=== PATIENT | male | born 1990 | race Hispanic/Latino ===

== ENCOUNTER 2019-05-05 19:49 | Emergency (ER) | payer SELFPAY ==
[2019-05-05] MEDS ORDERED: NA CHLORIDE 0.9% 1,000 ML ONE (21:22)
[2019-05-05] MEDS ORDERED: ONDANSETRON 4 MG/2 ML VIAL ONE (21:22)
[2019-05-05 21:33] LABS: Absolute Lymphocytes (CBC) 2.6 K/uL (0.7-4.9); Basophils % 0.5 % (0-1.3); Hematocrit 47.8 % (39.6-49.0); Lymphocytes % 31.4 % (15.3-44.8); MPV 9.3 fL (7.6-11.3); RBC Red Blood Cell Count 5.35 M/uL (4.33-5.43)
[2019-05-05 21:40] LABS: Albumin 4.5 g/dL (3.4-5.0); Bilirubin Direct 0.3 mg/dL (0-0.2); Bilirubin Total 1.2 mg/dL (0.2-1.0); Potassium 3.9 mmol/L (3.5-5.1); Protein, Total 8.2 g/dL (6.4-8.2)
--- NOTE | 2019-05-05 23:54 | ER ---
Nurse's Notes [facility] Name: Nba Rubio Age: 29 yrs Sex: Male : 1990 Arrival Date: 05/05/2019 Time: 19:52 Bed 18 Private MD: Diagnosis: Vomiting Presentation: 05/05 20:00 Presenting complaint: Patient states: "The past few days I've been throwing up and my aj1 stomach has been like it don't want to take no food." Reports intermittent abd pain. Denies fever. Transition of care: patient was not received from another setting of care. Onset of symptoms was 2019. Risk Assessment: Do you want to hurt yourself or someone else? Patient reports no desire to harm self or others. Initial Sepsis Screen: Does the patient meet any 2 criteria? No. Patient's initial sepsis screen is negative. Does the patient have a suspected source of infection? Yes: Acute abdominal pain. Care prior to arrival: None. 20:00 Method Of Arrival: Ambulatory aj1 20:00 Acuity: SHIVANI 3 aj1 Triage Assessment: 20:01 General: Appears in no apparent distress. comfortable, Behavior is calm, cooperative, aj1 appropriate for age. Pain: Pain currently is 5 out of 10 on a pain scale. Neuro: Level of Consciousness is awake, alert, obeys commands. Cardiovascular: Patient's skin is warm and dry. Respiratory: Airway is patent Respiratory effort is even, unlabored, Respiratory pattern is regular, symmetrical. GI: Reports nausea, vomiting. Historical: - Allergies: 20:01 No Known Allergies; aj1 - Home Meds: 20:01 None [Active]; aj1 - PMHx: 20:01 None; aj1 - PSHx: 20:01 None; aj1 - Immunization history:: Flu vaccine is not up to date. - Social history:: Smoking status: Patient/guardian denies using tobacco. - Ebola Screening: : Patient denies travel to an Ebola-affected area in the 21 days before illness onset. Screenin:00 Abuse screen: Denies threats or abuse. Denies injuries from another. Nutritional wh screening: No deficits noted. Tuberculosis screening: No symptoms or risk factors identified. Fall Risk None identified. Assessment: 21:30 General: Appears in no apparent distress. Behavior is calm, cooperative, appropriate wh for age. Pain: Denies pain. Neuro: Level of Consciousness is awake, alert, obeys commands. Cardiovascular: Heart tones S1 S2. Respiratory: Airway is patent Respiratory effort is even, unlabored, Respiratory pattern is regular, symmetrical, Breath sounds are clear bilaterally. GI: Abdomen is flat, non-distended, Bowel sounds present X 4 quads. Abd is soft and non tender X 4 quads. Reports nausea. : No signs and/or symptoms were reported regarding the genitourinary system. EENT: No signs and/or symptoms were reported regarding the EENT system. Derm: Skin is intact, is healthy with good turgor, Skin is pink, warm \\T\\ dry. normal. Musculoskeletal: Circulation, motion, and sensation intact. 22:40 Reassessment: Patient appears in no apparent distress at this time. No changes from previously documented assessment. Patient and/or family updated on plan of care and expected duration. Pain level reassessed. Patient is alert, oriented x 3, equal unlabored respirations, skin warm/dry/pink. 05/06 00:01 Reassessment: Patient appears in no apparent distress at this time. No changes from previously documented assessment. Patient and/or family updated on plan of care and expected duration. Pain level reassessed. Patient is alert, oriented x 3, equal unlabored respirations, skin warm/dry/pink. Patient states feeling better. Patient states symptoms have improved. Vital Signs: 05/05 20:01 BP 123 / 83; Pulse 70; Resp 18; Temp 97.8; Pulse Ox 100% on R/A; Weight 108.86 kg (R); aj1 Height 5 ft. 10 in. (177.80 cm) (R); Pain 5/10; 21:00 BP 121 / 72; Pulse 65; Resp 18; Pulse Ox 99% ; wh 22:00 BP 117 / 70; Pulse 64; Resp 18; Pulse Ox 100% on R/A; wh 23:30 BP 120 / 72; Pulse 66; Resp 18; Pulse Ox 99% on R/A; wh 20:01 Body Mass Index 34.44 (108.86 kg, 177.80 cm) aj1 ED Course: 19:52 Patient arrived in ED. cl3 20:01 Triage completed. aj1 20:01 Arm band placed on Patient placed in waiting room, Patient notified of wait time. aj1 20:25 Gautam Sarabia PA is PHCP. arslan 20:25 Eric Stokes MD is Attending Physician. arslan 20:58 Elaina Turcios is Primary Nurse. 21:00 Patient has correct armband on for positive identification. Bed in low position. Call light in reach. Side rails up X 1. Pulse ox on. NIBP on. 21:00 Inserted saline lock: 20 gauge in right antecubital area, using aseptic technique. Blood collected. 05/06 00:02 No provider procedures requiring assistance completed. IV discontinued, intact, bleeding controlled, No redness/swelling at site. Administered Medications: 05/05 21:27 Drug: NS 0.9% 1000 ml Route: IV; Rate: 1 bolus; Site: right antecubital; 23:17 Follow up: Response: No adverse reaction; IV Status: Completed infusion 21:29 Drug: Zofran 4 mg Route: IVP; Site: right antecubital; 23:17 Follow up: Response: No adverse reaction; Nausea is decreased Outcome: 23:53 Discharge ordered by . [facility] 05/06 00:02 Discharged to home ambulatory, with family. Condition: stable Discharge instructions given to patient, family, Instructed on discharge instructions, follow up and referral plans. no driving heavy equipment, POC Demonstrated understanding of instructions, follow-up care, medications, POC Prescriptions given X 1. 00:03 Patient left the ED. Signatures: Emmy Arvizu, RN RN aj1 Gautam Sarabia PA PA jmm Habalo, Winsy Amanda Alvarez cl3
--- NOTE | 2019-05-05 23:54 | EDPHYS ---
Physician Documentation [facility] Name: Nba Rubio Age: 29 yrs Sex: Male : 1990 Arrival Date: 05/05/2019 Time: 19:52 Bed 18 Private MD: ED Physician Eric Stokes HPI: 05/05 21:07 This 29 yrs old Male presents to ER via Ambulatory with complaints of jmm Vomiting, Abdominal Pain. 21:07 The patient presents to the emergency department with nausea, vomiting. Onset: The jmm symptoms/episode began/occurred acutely, 1 day(s) ago. Possible causes: unknown. The symptoms are aggravated by food , The symptoms are alleviated by nothing. Associated signs and symptoms: Pertinent negatives: abdominal pain, diarrhea, fever. Patient denies recent abx use, denies recent travel. . Historical: - Allergies: 20:01 No Known Allergies; aj1 - Home Meds: 20:01 None [Active]; aj1 - PMHx: 20:01 None; aj1 - PSHx: 20:01 None; aj1 - Immunization history:: Flu vaccine is not up to date. - Social history:: Smoking status: Patient/guardian denies using tobacco. - Ebola Screening: : Patient denies travel to an Ebola-affected area in the 21 days before illness onset. ROS: 21:07 Constitutional: Negative for fever, chills, and weight loss, Cardiovascular: Negative jmm for chest pain, palpitations, and edema, Respiratory: Negative for shortness of breath, cough, wheezing, and pleuritic chest pain. 21:07 Abdomen/GI: Positive for nausea and vomiting. 21:07 All other systems are negative. Exam: 21:07 Constitutional: This is a well developed, well nourished patient who is awake, alert, jmm and in no acute distress. Head/Face: atraumatic. Eyes: EOMI, no conjunctival erythema appreciated ENT: Moist Mucus Membranes Neck: Trachea midline, Supple Chest/axilla: Normal chest wall appearance and motion. Cardiovascular: Regular rate and rhythm. No edema appreciated Respiratory: Normal respirations, no respiratory distress appreciated 21:07 Back: Normal ROM Skin: General appearance color normal MS/ Extremity: Moves all extremities, no obvious deformities appreciated, no edema noted to the lower extremities Neuro: Awake and alert, normal gait Psych: Behavior is normal, Mood is normal, Patient is cooperative and pleasant 21:07 Abdomen/GI: Inspection: abdomen appears normal, Bowel sounds: normal, Palpation: abdomen is soft and non-tender. Vital Signs: 20:01 BP 123 / 83; Pulse 70; Resp 18; Temp 97.8; Pulse Ox 100% on R/A; Weight 108.86 kg (R); aj1 Height 5 ft. 10 in. (177.80 cm) (R); Pain 5/10; 21:00 BP 121 / 72; Pulse 65; Resp 18; Pulse Ox 99% ; wh 22:00 BP 117 / 70; Pulse 64; Resp 18; Pulse Ox 100% on R/A; wh 23:30 BP 120 / 72; Pulse 66; Resp 18; Pulse Ox 99% on R/A; wh 20:01 Body Mass Index 34.44 (108.86 kg, 177.80 cm) aj1 MDM: 20:29 Patient medically screened. casey 23:51 Data reviewed: vital signs, nurses notes. Counseling: I had a detailed discussion with melissa the patient and/or guardian regarding: the historical points, exam findings, and any diagnostic results supporting the discharge/admit diagnosis, lab results, the need for outpatient follow up, to return to the emergency department if symptoms worsen or persist or if there are any questions or concerns that arise at home. ED course: Patient is alert and non toxic in appearance in the ED. Abdomen is non tender to palpation. Patient was given early appendicitis return precautions. Patient understood and agrees with the plan of care. . 05/05 21:06 Order name: Basic Metabolic Panel; Complete Time: 21:58 [facility] 05/05 21:06 Order name: CBC with Diff; Complete Time: 21:58 [facility] 05/05 21:06 Order name: Creatinine for Radiology; Complete Time: 21:58 [facility] 05/05 21:06 Order name: Hepatic Function; Complete Time: 21:58 [facility] 05/05 21:06 Order name: Lipase; Complete Time: 21:58 [facility] 05/05 22:49 Order name: Urine Dipstick--Ancillary (enter results) ar5 05/05 21:06 Order name: IV Saline Lock; Complete Time: 21:19 [facility] 05/05 21:06 Order name: Labs collected and sent; Complete Time: 21:19 [facility] 05/05 21:06 Order name: Urine Dipstick-Ancillary (obtain specimen); Complete Time: 22: [facility] 05/05 21:59 Order name: PO challenge; Complete Time: : [facility] Administered Medications: 21:27 Drug: NS 0.9% 1000 ml Route: IV; Rate: 1 bolus; Site: right antecubital; 23:17 Follow up: Response: No adverse reaction; IV Status: Completed infusion 21:29 Drug: Zofran 4 mg Route: IVP; Site: right antecubital; 23:17 Follow up: Response: No adverse reaction; Nausea is decreased Disposition: 05/05/19 23:53 Discharged to Home. Impression: Vomiting. - Condition is Stable. - Discharge Instructions: Nausea and Vomiting, Adult. - Prescriptions for Zofran ODT 4 mg Oral tablet,disintegrating - place 1 tablet by TRANSLINGUAL route every 4-6 hours; 20 tablet. - Medication Reconciliation Form, Thank You Letter, Antibiotic Education, Prescription Opioid Use form. - Follow up: Private Physician; When: 2 - 3 days; Reason: Recheck today's complaints, Continuance of care, Re-evaluation by your physician. Addendum: 05/07/2019 10:03 Co-signature as Attending Physician, Eric Stokes MD I agree with the assessment and c nuñez plan of care. Signatures: Dispatcher [employer] EDEmmy Murphy, RN RN aj1 Eric Stokes MD MD cha Mickail, Joel, PA PA [facility] Elaina Turcios Corrections: (The following items were deleted from the chart) 05/06 00:03 05/05 23:53 05/05/2019 23:53 Discharged to Home. Impression: Vomiting. Condition is Stable. Forms are Medication Reconciliation Form, Thank You Letter, Antibiotic Education, Prescription Opioid Use. Follow up: Private Physician; When: 2 - 3 days; Reason: Recheck today's complaints, Continuance of care, Re-evaluation by your physician. [facility]
[2019-05-06 00:44] LABS: Urine Blood TRACE (NEG); Urine Glucose NEGATIVE (NEG); Urine Protein 1+ (NEG); Urine Specific Gravity >1.030 (1.005-1.030); Urine pH 5.5 (5.0-7.0)
[2019-05-06 01:18] VITALS: TEMP 97.8
[2019-05-06 01:22] VITALS: BP 120/72; O2SAT 99
== END 2019-05-06 00:03 | disposition home or self-care (01) ==
LOC: ER 19:49
DX: R11.10 Vomiting, unspecified (principal)
CPT/HCPCS: 36415; 80048; 80076; 81003; 83690; 85025; 96361; 96374; 99284; J2405; J7030

== ENCOUNTER 2019-05-15 04:31 | Emergency (ER) | payer SELFPAY ==
[2019-05-15 05:29] LABS: Absolute Lymphocytes (CBC) 3.7 K/uL (0.7-4.9); Basophils % 0.4 % (0-1.3); Hematocrit 44.3 % (39.6-49.0); Lymphocytes % 40.5 % (15.3-44.8); MPV 9.2 fL (7.6-11.3); RBC Red Blood Cell Count 5.03 M/uL (4.33-5.43)
[2019-05-15 06:01] LABS: Albumin 4.3 g/dL (3.4-5.0); Bilirubin Direct 0.2 mg/dL (0-0.2); Bilirubin Total 1.1 mg/dL (0.2-1.0); Potassium 3.5 mmol/L (3.5-5.1); Protein, Total 7.7 g/dL (6.4-8.2)
--- NOTE | 2019-05-15 06:47 | ER ---
Nurse's Notes [facility] Name: Nba Rubio Age: 29 yrs Sex: Male : 1990 Arrival Date: 05/15/2019 Time: 04:32 Bed 7 Private MD: Diagnosis: Unspecified abdominal pain Presentation: 05/15 04:41 Presenting complaint: Patient states: I'VE BEEN HAVING WEIRD PAINS ON MY BELLY. LIKE rv SHARP PAINS. TODAY I WOKE UP AT 3 WITH PAIN. I TRIED TO GO TO THE RESTROOM BUT ITS NOT THAT. ITS JUST WEIRD. Transition of care: patient was not received from another setting of care. Onset of symptoms was May 15, 2019 at 03:00. Risk Assessment: Do you want to hurt yourself or someone else? Patient reports no desire to harm self or others. Initial Sepsis Screen: Does the patient meet any 2 criteria? No. Patient's initial sepsis screen is negative. Does the patient have a suspected source of infection? No. Patient's initial sepsis screen is negative. Care prior to arrival: None. 04:41 Method Of Arrival: Ambulatory rv 04:41 Acuity: SHIVANI 3 rv Triage Assessment: 04:44 General: Appears in no apparent distress. Behavior is calm, cooperative. Pain: rv Complains of pain in abdomen. Neuro: Level of Consciousness is awake, alert, obeys commands, Oriented to person, place, time, situation. Cardiovascular: Patient's skin is warm and dry. Respiratory: Airway is patent. GI: Abdomen is flat. Derm: Skin is intact. Historical: - Allergies: 04:43 No Known Allergies; rv - Home Meds: 04:43 None [Active]; rv - PMHx: 04:43 None; rv - PSHx: 04:43 None; rv - Immunization history:: Adult Immunizations up to date. - Coronavirus screen:: The patient has NOT traveled to [place], [place], or [place] in the past 14 days. Proceed with normal triage process as indicated. The patient has NOT had contact with known/suspected case of Coronavirus? Proceed with normal triage procedures. - Social history:: Smoking status: Smoking status: Patient/guardian denies using tobacco, Stopped _ months ago [address], marijuana. - Family history:: not pertinent. - Ebola Screening: : No symptoms or risks identified at this time. - Hospitalizations: : No recent hospitalization is reported. Screenin:44 Abuse screen: Denies threats or abuse. Denies injuries from another. Nutritional rv screening: No deficits noted. Tuberculosis screening: No symptoms or risk factors identified. Fall Risk None identified. Assessment: 04:45 GI: Bowel sounds present X 4 quads. Abd is soft and non tender X 4 quads. rv 05:33 General: Appears in no apparent distress. comfortable. Pain: Complains of pain in rv abdomen. Neuro: Level of Consciousness is awake, alert, obeys commands, Oriented to person, place, time, situation. Cardiovascular: Patient's skin is warm and dry. Respiratory: Airway is patent. 06:30 Reassessment: Patient appears in no apparent distress at this time. Patient and/or rv family updated on plan of care and expected duration. Pain level reassessed. Patient is alert, oriented x 3, equal unlabored respirations, skin warm/dry/pink. CAME BACK RADIOLOGY. AWAITING RESULT. Vital Signs: 04:42 BP 146 / 108; Pulse 72; Resp 16; Temp 97.2; Pulse Ox 99% on R/A; rv 04:54 Weight 107.95 kg; Height 5 ft. 10 in. (177.80 cm); rv 05:33 BP 121 / 90; Pulse 62; Resp 17; Pulse Ox 99% on R/A; rv 06:00 BP 121 / 81; Pulse 67; Resp 18; Pulse Ox 100% on R/A; rv 06:29 BP 136 / 80; Pulse 62; Resp 16; Pulse Ox 100% ; rv 04:54 Body Mass Index 34.15 (107.95 kg, 177.80 cm) rv ED Course: 04:32 Patient arrived in ED. ds1 04:36 Andrew Greenfield MD is Attending Physician. rn 04:41 Dusty Temple RN is Primary Nurse. rv 04:42 Triage completed. rv 04:44 Arm band placed on. rv 04:44 Patient has correct armband on for positive identification. Pulse ox on. NIBP on. rv 04:54 Inserted saline lock: 20 gauge in right antecubital area, using aseptic technique. jb5 Blood collected. 05:26 Radiology exam delayed due to lab results not completed at this time. (BUN/Creatinine). kw1 05:51 Radiology exam delayed due to lab results not completed at this time. (BUN/Creatinine). kw1 06:28 CT Abd/Pelvis - IV Contrast Only In Process Unspecified. EDMS 06:50 No provider procedures requiring assistance completed. IV discontinued, intact, rv bleeding controlled, No redness/swelling at site. Pressure dressing applied. Administered Medications: No medications were administered Outcome: 06:46 Discharge ordered by MD. rn 06:50 Discharged to home ambulatory, with family. rv 06:50 Condition: good 06:50 Discharge instructions given to patient, family, Instructed on discharge instructions, follow up and referral plans. Demonstrated understanding of instructions, follow-up care. 06:55 Patient left the ED. rv Signatures: Dispatcher [employer] EDMS Janett Mcfarlnae ds1 Andrew Greenfield MD MD rn Broussard, Jennifer jb5 Wilhelm, Kimberly kw1 Dusty Temple RN RN rv
--- NOTE | 2019-05-15 06:47 | EDPHYS ---
Physician Documentation [facility] Name: Nba Rubio Age: 29 yrs Sex: Male : 1990 Arrival Date: 05/15/2019 Time: 04:32 Bed 7 Private MD: ED Physician Andrew Greenfield HPI: 05/15 04:51 This 29 yrs old Male presents to ER via Ambulatory with complaints of rn Abdominal Pain. 04:51 The patient presents with abdominal pain that is diffuse. Onset: The symptoms/episode rn began/occurred 1 week(s) ago. The symptoms do not radiate. Associated signs and symptoms: Pertinent positives: constipation, Pertinent negatives: blood in stools, chest pain, diarrhea, dysuria, fever, hematuria, testicular pain, vomiting. Modifying factors: The symptoms are alleviated by nothing, the symptoms are aggravated by nothing. Severity of pain: At its worst the pain was mild in the emergency department the pain is unchanged. The patient has experienced a previous episode. Reports recently seen for this abd pain last week, only bloodwork done, no fever, no longer having vomiting/diarrhea, no blood in stool, reports lays down and gets anxious with pain, then feels like can't breath. . Historical: - Allergies: 04:43 No Known Allergies; rv - Home Meds: 04:43 None [Active]; rv - PMHx: 04:43 None; rv - PSHx: 04:43 None; rv - Immunization history:: Adult Immunizations up to date. - Coronavirus screen:: The patient has NOT traveled to [place], [place], or [place] in the past 14 days. Proceed with normal triage process as indicated. The patient has NOT had contact with known/suspected case of Coronavirus? Proceed with normal triage procedures. - Social history:: Smoking status: Smoking status: Patient/guardian denies using tobacco, Stopped _ months ago [address], marijuana. - Family history:: not pertinent. - Ebola Screening: : No symptoms or risks identified at this time. - Hospitalizations: : No recent hospitalization is reported. ROS: 04:51 Constitutional: Negative for fever, chills, and weight loss, Eyes: Negative for injury, rn pain, redness, and discharge, Cardiovascular: Negative for chest pain, palpitations, and edema, Respiratory: Negative for shortness of breath, cough, wheezing, and pleuritic chest pain, Abdomen/GI: Negative for nausea, vomiting, diarrhea Back: Negative for injury and pain, : Negative for injury, bleeding, discharge, and swelling, MS/Extremity: Negative for injury and deformity, Skin: Negative for injury, rash, and discoloration, Neuro: Negative for headache, weakness, numbness, tingling, and seizure. Exam: 04:51 Constitutional: This is a well developed, well nourished patient who is awake, alert, rn and in no acute distress. Ambulatory to room without difficulty Head/Face: Normocephalic, atraumatic. Cardiovascular: Regular rate and rhythm. No pulse deficits. Respiratory: No increased work of breathing, no retractions or nasal flaring. Abdomen/GI: soft, non-tender Back: No spinal tenderness. No costovertebral tenderness. Full range of motion. Skin: Warm, dry with normal turgor. Normal color with no rashes, no lesions, and no evidence of cellulitis. MS/ Extremity: Pulses equal, no cyanosis. Neurovascular intact. Full, normal range of motion. Equal circumference. Neuro: Awake and alert, GCS 15, oriented to person, place, time, and situation. Cranial nerves II-XII grossly intact. Motor strength 5/5 in all extremities. Sensory grossly intact. Cerebellar exam normal. Normal gait. Vital Signs: 04:42 BP 146 / 108; Pulse 72; Resp 16; Temp 97.2; Pulse Ox 99% on R/A; rv 04:54 Weight 107.95 kg; Height 5 ft. 10 in. (177.80 cm); rv 05:33 BP 121 / 90; Pulse 62; Resp 17; Pulse Ox 99% on R/A; rv 06:00 BP 121 / 81; Pulse 67; Resp 18; Pulse Ox 100% on R/A; rv 06:29 BP 136 / 80; Pulse 62; Resp 16; Pulse Ox 100% ; rv 04:54 Body Mass Index 34.15 (107.95 kg, 177.80 cm) rv MDM: 04:36 Patient medically screened. rn 06:44 Differential diagnosis: gastritis, gastroesophageal reflux disease, Hepatitis, rn non-specific abd pain, pancreatitis, Peptic Ulcer Disease. Data reviewed: vital signs, nurses notes, lab test result(s), radiologic studies, CT scan, and as a result, I will discharge patient. 06:45 Counseling: I had a detailed discussion with the patient and/or guardian regarding: the rn historical points, exam findings, and any diagnostic results supporting the discharge/admit diagnosis, lab results, radiology results, the need for outpatient follow up, to return to the emergency department if symptoms worsen or persist or if there are any questions or concerns that arise at home. Response to treatment: the patient's symptoms have mildly improved after treatment, and as a result, I will discharge patient. Special discussion: Based on the patient's Hx, exam, and Dx evaluation, there is no indication for emergent surgery or inpatient Tx. It is understood by the patient/guardian that if the Sx's persist or worsen they need to return immediately for re-evaluation. I discussed with the patient/guardian in detail that at this point there is no indication for admission to the hospital. It is understood, however, that if the symptoms persist or worsen the patient needs to return immediately for re-evaluation. ED course: No acute findings on ct abdomen. Will dc home with pcp f/u. . 05/15 04:47 Order name: Basic Metabolic Panel; Complete Time: 06:05 05/15 04:47 Order name: CBC with Diff; Complete Time: 06:05 05/15 04:47 Order name: Creatinine for Radiology; Complete Time: 06:05 05/15 04:47 Order name: Hepatic Function; Complete Time: 06:05 rn 05/15 04:47 Order name: Lipase; Complete Time: 06:05 05/15 05:39 Order name: Urine Dipstick--Ancillary (enter results) em1 05/15 04:47 Order name: IV Saline Lock; Complete Time: 04:53 rn 05/15 04:47 Order name: Labs collected and sent; Complete Time: 04:54 rn 05/15 04:47 Order name: CT Abd/Pelvis - IV Contrast Only rn 05/15 04:47 Order name: Urine Dipstick-Ancillary (obtain specimen); Complete Time: 05:34 rn Administered Medications: No medications were administered Disposition: 05/15/19 06:46 Discharged to Home. Impression: Unspecified abdominal pain. - Condition is Stable. - Discharge Instructions: Abdominal Pain, Adult, Pain Without a Known Cause. - Medication Reconciliation Form, Thank You Letter, Antibiotic Education, Prescription Opioid Use, Work release form form. - Follow up: Private Physician; When: As needed; Reason: Recheck today's complaints, Re-evaluation by your physician. - Problem is an ongoing problem. - Symptoms have improved. Signatures: Dispatcher [employer] EDAndrew Lema MD MD rn Vicente, Ronaldo, RN RN rv Corrections: (The following items were deleted from the chart) 06:55 06:46 05/15/2019 06:46 Discharged to Home. Impression: Unspecified abdominal pain. rv Condition is Stable. Forms are Medication Reconciliation Form, Thank You Letter, Antibiotic Education, Prescription Opioid Use. Follow up: Private Physician; When: As needed; Reason: Recheck today's complaints, Re-evaluation by your physician. Problem is an ongoing problem. Symptoms have improved. rn
[2019-05-15 07:10] VITALS: TEMP 97.2
[2019-05-15 07:13] LABS: Urine Blood TRACE (NEG); Urine Glucose NEGATIVE (NEG); Urine Protein TRACE (NEG); Urine Specific Gravity >1.030 (1.005-1.030)
[2019-05-15 07:16] VITALS: O2SAT 100
[2019-05-15 07:17] VITALS: BP 136/80
--- NOTE | 2019-05-15 12:31 | RAD REPORT ---
EXAM DESCRIPTION: CT - Abdomen Pelvis W Contrast - 05/15/2019 6:46 am CLINICAL HISTORY: The patient is 29 years old and is Male; ABD PAIN TECHNIQUE: Axial computed tomography images of the abdomen and pelvis with intravenous contrast. S agittal and coronal reformatted images were created and reviewed. This CT exam was performed using one or more of the following dose reduction techniques: automated exposure control, adjustment of t he mA and/or kV according to patient size, and/or use of iterative reconstruction technique. COMPARISON: No relevant prior studies available. FINDINGS: Lung bases: Unremarkable. No mass. No consolidation. ABDOMEN: Liver: Unremarkable. No mass. Gallbladder and bile ducts: Unremarkable. No calcified stones. No ductal dilation. Pancreas: Unremarkable. No mass. No ductal dilation. Spleen: Unremarkable. No splenomegaly. Adrenals: Unremarkable. No mass. Kidneys and ureters: Unremarkable. No solid mass. No hydronephrosis. Stomach and bowel: Unremarkable. No obstruction. No mucosal thickening. PELVIS: Appendix: No findings to suggest acute appendicitis. Bladder: Unremarkable. No mass. Reproductive: Unremarkable as visualized. ABDOMEN and PELVIS: Intraperitoneal space: Unremarkable. No free air. No significant fluid collection. Bones/joints: No acute fracture. No dislocation. Soft tissues: Unremarkable. Vasculature: Unremarkable. No abdominal aortic aneurysm. Lymph nodes: Unremarkable. No enlarged lymph nodes. IMPRESSION: No acute intra-abdominal abnormality. Electronically signed by: Yonathan Yates MD 05/15/2019 6:38 AM REHABILITATION LIAISON Due to temporary technical issues with the PACS/Fluency reporting system, reports are being signed by the in house radiologist as a courtesy to ensure prompt reporting. The interpreting radiologist is f ully responsible for the content of the report.
== END 2019-05-15 06:55 | disposition home or self-care (01) ==
LOC: ER 04:31
DX: R10.9 Unspecified abdominal pain (principal)
CPT/HCPCS: 36415; 74177; 80048; 80076; 81003; 83690; 85025; 99284; Q9967

== ENCOUNTER 2020-01-05 01:34 | Emergency (ER) | payer SELFPAY ==
--- OUTSIDE RECORDS SUMMARY | 2020-01-05 01:36 | XMS REPORT | Continuity of Care Document ---
:1990 Author Organization [facility] t Address [address] [place] [address] Care Team Providers Name Role Phone Unavailable Unavailable Unavailable Problems Condition Condition Condition Status Onset Resolution Last Treating Co mments Source Name Details Category Date Date Treatment Clinician Date Nausea and Nausea and Diagnosis Active [facility] vomiting, vomiting, Luke [facility] - intractabi intractabi Me moria lity of lity of l vomiting vomiting Outpat i not not ent specified, specified, Cl inics unspecifie unspecifie d vomiting d vomiting type type Gastroesop Gastroesop Diagnosis Active [facility]age[facility]ageal [facility] - reflux reflux Memoria disease, disease, l esophagiti esophagiti Ou tpati s presence s presence en t not not Clinics specified specified Allergies, Adverse Reactions, Alerts This patient has no known allergies or adverse reactions. Medications Ordered Filled Start Stop Current Ordering Indication Dosage Frequency Signature Comments Components Source Medication Medication Date Date Medication? Clinician (SIG) Name Name Prevacid Prevacid Yes Lizz [address] [facility] 05-12 [facility] - 00:00: [facility] 00 l [facility] Promethazin Promethazin 2019- No Lizz [address] [facility] e HCl e HCl 05-12 Maxwell as needed [facility] - 00:00: 00:00 for N/V [facility] 00 :00 [facility] Procedures This patient has no known procedures. Encounters Start End Encounter Admission Attending Care Care Encounter Source Date/Time Date/Time Type Type Clinicians Facility Department ID 2019-05-12 2019-05-12 [facility] [id number] [facility] [address] 15:00:00 15:00:00 t [facility] - Road [facility] Family Medicine Medicine [facility] Results This patient has no known results.
--- NOTE | 2020-01-05 03:42 | ER ---
Nurse's Notes [facility] Name: Nba Rubio Age: 29 yrs Sex: Male : 1990 Arrival Date: 01/05/2020 Time: 01:37 Bed 17 Private MD: Diagnosis: Pharyngitis Presentation: 01/04 01:58 Chief complaint: Patient states: throat discomfort that started 3 days ago. Coronavirus fu screen: Client denies travel out of the [place] in the last 14 days. Ebola Screen: No symptoms or risks identified at this time. Initial Sepsis Screen: Does the patient meet any 2 criteria? Does the patient have a suspected source of infection? No. Patient's initial sepsis screen is negative. Risk Assessment: Do you want to hurt yourself or someone else? Patient reports no desire to harm self or others. Onset of symptoms was January 02, 2020. 01:58 Method Of Arrival: Ambulatory fu 01:58 Acuity: SHIVANI 3 fu Triage Assessment: 02:01 General: Appears in no apparent distress. Behavior is calm, cooperative, appropriate fu for age. Pain: Denies pain. EENT: Reports throat discomfort. Historical: - Allergies: 02:00 No Known Allergies; fu - Home Meds: 02:00 None [Active]; fu - PMHx: 02:00 None; fu - PSHx: 02:00 None; fu - Immunization history:: Adult Immunizations not up to date. - Social history:: Smoking status: Patient reports the use of cigarette tobacco products, "average of 2 cigarettes per day". Screenin:56 Abuse screen: Denies threats or abuse. Denies injuries from another. Nutritional ch2 screening: No deficits noted. Tuberculosis screening: No symptoms or risk factors identified. Fall Risk None identified. Assessment: 02:15 General: Appears in no apparent distress. comfortable, well groomed, well developed, ch2 well nourished, Behavior is calm, cooperative, appropriate for age, Denies fever, fatigue, chills. Pain: Complains of pain in throat. Neuro: No deficits noted. Level of Consciousness is awake, alert, obeys commands, Oriented to person, place, time, situation, Appropriate for age Gait is steady, Speech is normal, Facial symmetry appears normal, Denies difficulty swallowing. Cardiovascular: No deficits noted. Denies chest pain, nausea, shortness of breath, vomiting. Respiratory: No deficits noted. Airway is patent Trachea midline Respiratory effort is even, unlabored, Breath sounds are clear bilaterally. EENT: No deficits noted. Throat is clear. 03:00 Reassessment: Patient appears in no apparent distress at this time. No changes from ch2 previously documented assessment. Patient and/or family updated on plan of care and expected duration. Pain level reassessed. Patient is alert, oriented x 3, equal unlabored respirations, skin warm/dry/pink. 03:53 Reassessment: Patient appears in no apparent distress at this time. No changes from ch2 previously documented assessment. Patient and/or family updated on plan of care and expected duration. Pain level reassessed. Patient is alert, oriented x 3, equal unlabored respirations, skin warm/dry/pink. Patient denies pain at this time. Vital Signs: 01:58 BP 130 / 74; Pulse 74; Resp 18; Temp 98.2; Pulse Ox 97% on R/A; Pain 0/10; fu 02:30 BP 107 / 82; Pulse 67; Resp 16; Pulse Ox 98% on R/A; Pain 0/10; ch2 03:00 BP 108 / 63; Pulse 59; Resp 18; Pulse Ox 96% on R/A; Pain 0/10; ch2 03:30 BP 106 / 71; Pulse 60; Resp 18; Pulse Ox 100% on R/A; ch2 ED Course: 01:37 Patient arrived in ED. cl3 01:39 Gamaliel De La Rosa MD is Attending Physician. pkl 02:00 Triage completed. fu 02:21 Strep Sent. fu 03:56 No provider procedures requiring assistance completed. Patient did not have IV access [facility] during this emergency room visit. 03:56 Arm band placed on left wrist. ch2 03:57 Patient has correct armband on for positive identification. Bed in low position. Call [facility] light in reach. Pulse ox on. NIBP on. Administered Medications: No medications were administered Outcome: 03:41 Discharge ordered by . pkl 03:56 Discharged to home ambulatory. ch2 03:56 Condition: good 03:56 Discharge instructions given to patient, Instructed on discharge instructions, follow up and referral plans. medication usage, Demonstrated understanding of instructions, follow-up care, medications, Prescriptions given X 1. 03:57 Patient left the ED. ch2 Signatures: Gamaliel De La Rosa MD MD pkRichy Garcia RN RN fu Dana Borges RN RN ch2 Amanda Alvarez cl3 Corrections: (The following items were deleted from the chart) 03:51 03:49 General: Appears in no apparent distress. comfortable, well groomed, well ch2 developed, well nourished, Behavior is calm, cooperative, appropriate for age, Denies fever, fatigue, chills, ch2 03:52 03:49 Pain: Complains of pain in throat ch2 ch2 : 03:49 Neuro: No deficits noted. Level of Consciousness is awake, alert, obeys commands, ch2 Oriented to person, place, time, situation, Appropriate for age Gait is steady, Speech is normal, Facial symmetry appears normal, Denies difficulty swallowing, ch2 : 03:49 Cardiovascular: No deficits noted. Denies chest pain, nausea, shortness of ch2 breath, vomiting, ch2 : 03:49 Respiratory: No deficits noted. Airway is patent Trachea midline Respiratory ch2 effort is even, unlabored, Breath sounds are clear bilaterally. ch2 : 03:49 EENT: No deficits noted. Throat is clear ch2 ch2 03:52 03:49 General: Appears in no apparent distress. comfortable, well groomed, well ch2 developed, well nourished, Behavior is calm, cooperative, appropriate for age, Denies fever, fatigue, chills, ch2
--- NOTE | 2020-01-05 03:42 | EDPHYS ---
Physician Documentation [facility] Name: Nba Rubio Age: 29 yrs Sex: Male : 1990 Arrival Date: 01/05/2020 Time: 01:37 Bed 17 Private MD: ED Physician Gamaliel De La Rosa HPI: 01/04 03:36 This 29 yrs old Male presents to ER via Ambulatory with complaints of Sore pkl Throat. 03:38 The patient presents with sore throat. The patient describes throat pain as scratchy. pkl Onset: The symptoms/episode began/occurred 3 day(s) ago. Associated signs and symptoms: The patient has no apparent associated signs or symptoms. Historical: - Allergies: 02:00 No Known Allergies; fu - Home Meds: 02:00 None [Active]; fu - PMHx: 02:00 None; fu - PSHx: 02:00 None; fu - Immunization history:: Adult Immunizations not up to date. - Social history:: Smoking status: Patient reports the use of cigarette tobacco products, "average of 2 cigarettes per day". ROS: 03:38 Eyes: Negative for injury, pain, redness, and discharge. pkl 03:38 ENT: Positive for sore throat. 03:38 Neck: Negative for stiffness. 03:38 Cardiovascular: Negative for chest pain. 03:38 Respiratory: Negative for cough, shortness of breath. 03:38 Abdomen/GI: Negative for abdominal pain, nausea, vomiting, and diarrhea. 03:38 Back: Negative for acute changes. 03:38 : Negative for urinary symptoms. 03:38 MS/extremity: Negative for acute changes. 03:38 Skin: Negative for rash. 03:38 Neuro: Negative for altered mental status. Exam: 03:38 Head/Face: Normocephalic, atraumatic. Eyes: Pupils equal round and reactive to light, pkl extra-ocular motions intact. Lids and lashes normal. Conjunctiva and sclera are non-icteric and not injected. Cornea within normal limits. Periorbital areas with no swelling, redness, or edema. 03:38 ENT: Posterior pharynx: erythema, that is mild. 03:38 Neck: Exam negative for acute changes. 03:38 Chest/axilla: Exam negative for acute changes. 03:38 Cardiovascular: Rate: normal, Rhythm: regular. 03:38 Respiratory: the patient does not display signs of respiratory distress, Respirations: normal, Breath sounds: are clear throughout. 03:38 Abdomen/GI: Bowel sounds: normal, Palpation: abdomen is soft and non-tender, in all quadrants. 03:38 Back: Exam negative for acute changes. 03:38 : Exam negative for acute changes. 03:38 Musculoskeletal/extremity: Exam is negative for acute changes. 03:38 Skin: Exam negative for rash. 03:38 Neuro: Orientation: is normal, Mentation: is normal, Cranial nerves: grossly normal, Motor: is normal. Vital Signs: 01:58 BP 130 / 74; Pulse 74; Resp 18; Temp 98.2; Pulse Ox 97% on R/A; Pain 0/10; fu 02:30 BP 107 / 82; Pulse 67; Resp 16; Pulse Ox 98% on R/A; Pain 0/10; ch2 03:00 BP 108 / 63; Pulse 59; Resp 18; Pulse Ox 96% on R/A; Pain 0/10; ch2 03:30 BP 106 / 71; Pulse 60; Resp 18; Pulse Ox 100% on R/A; ch2 MDM: 01:39 Patient medically screened. pk 03:38 Data reviewed: vital signs, nurses notes, lab test result(s). [facility] 01/04 02:16 Order name: Strep; Complete Time: 03:33 fu 01/04 03:13 Order name: Throat Culture EDMS Administered Medications: No medications were administered Disposition: 01/05/20 03:41 Discharged to Home. Impression: Pharyngitis. - Condition is Stable. - Prescriptions for Acyclovir 400 mg Oral Tablet - take 1 tablet by ORAL route every 8 hours; 20 tablet. - Medication Reconciliation Form, Thank You Letter, Antibiotic Education, Prescription Opioid Use form. - Follow up: Private Physician; When: 2 - 3 days; Reason: Re-evaluation by your physician. - Problem is new. - Symptoms are unchanged. Signatures: Dispatcher [employer] EDMS Gamaliel De La Rosa MD MD pkRichy Garcia RN RN fu Dana Borges RN RN ch2 Corrections: (The following items were deleted from the chart) 03:57 03:41 01/05/2020 03:41 Discharged to Home. Impression: Pharyngitis. Condition is ch2 Stable. Forms are Medication Reconciliation Form, Thank You Letter, Antibiotic Education, Prescription Opioid Use. Follow up: Private Physician; When: 2 - 3 days; Reason: Re-evaluation by your physician. Problem is new. Symptoms are unchanged. pkl
[2020-01-05 15:45] VITALS: TEMP 98.2
[2020-01-05 15:49] VITALS: BP 106/71; O2SAT 100
== END 2020-01-05 03:57 | disposition home or self-care (01) ==
LOC: ER 01:34
DX: J02.9 Acute pharyngitis, unspecified (principal); F17.210 Nicotine dependence, cigarettes, uncomplicated
CPT/HCPCS: 87070; 87081; 99283

== ENCOUNTER 2020-01-07 16:48 | Emergency (ER) | payer SELFPAY ==
--- OUTSIDE RECORDS SUMMARY | 2020-01-07 16:50 | XMS REPORT | Continuity of Care Document ---
:1990 Author Organization [facility] t Address [address] [place] [address] Care Team Providers Name Role Phone Unavailable [...] [facility] - 00:00: [facility] 00 [facility] Promethazin Promethazin 2019- No Lizz [address] [facility] HCl e HCl 05-12 Maxwell as needed [facility] - 00:00: 00:00 for N/V [facility] 00 :00 [facility] Procedures This patient has no known procedures. Encounters Start End Encounter Admission Attending Care Care Encounter Source Date/Time Date/Time Type Type Clinicians Facility Department ID 2019-05-12 2019-05-12 [facility] [id number] [facility] [address] 15:00:00 15:00:00 t [facility] s - Road [facility] Results This patient has no known results.
--- NOTE | 2020-01-07 18:07 | ER ---
Nurse's Notes [facility] Name: Nba Rubio Age: 29 yrs Sex: Male : 1990 Arrival Date: 01/07/2020 Time: 16:51 Bed 23 Private MD: Diagnosis: Acute pharyngitis;Dyspnea Presentation: 01/06 17:00 Chief complaint: Patient states: Patient reports sore throat for the past 5 days, he aj1 was seen in this ER 2 days ago for the same complaint. Patient was swabbed for strep throat and the swab was negative. He was discharge with a prescription which he has been taking, but he is not feeling better. Patient reports that he has not followed up with his PHCP. Denies fever. Coronavirus screen: Client denies travel out of the [place] in the last 14 days. At this time, the client does not indicate any symptoms associated with coronavirus-19. Ebola Screen: Patient denies travel to an Ebola-affected area in the 21 days before illness onset. Initial Sepsis Screen: Does the patient meet any 2 criteria? HR > 90 bpm. No. Patient's initial sepsis screen is negative. Does the patient have a suspected source of infection? No. Patient's initial sepsis screen is negative. Risk Assessment: Do you want to hurt yourself or someone else? Patient reports no desire to harm self or others. Onset of symptoms was December 2019. 17:00 Method Of Arrival: Ambulatory aj1 17:00 Acuity: SHIVANI 4 aj1 Triage Assessment: 17:03 General: Appears in no apparent distress. comfortable, Behavior is calm, cooperative, aj1 appropriate for age. Pain: Complains of pain in left aspect of posterior pharynx and right aspect of posterior pharynx Pain currently is 6 out of 10 on a pain scale. Quality of pain is described as sharp. EENT: Throat is reddened bilaterally Reports difficulty swallowing sore throat. Neuro: Level of Consciousness is awake, alert, obeys commands, Oriented to person, place, time, situation. Cardiovascular: Patient's skin is warm and dry. Respiratory: Airway is patent Respiratory effort is even, unlabored, Respiratory pattern is regular, symmetrical. Respiratory: Breath sounds are clear bilaterally. GI: No signs and/or symptoms were reported involving the gastrointestinal system. : No signs and/or symptoms were reported regarding the genitourinary system. Derm: No signs and/or symptoms reported regarding the dermatologic system. Skin is pink, warm \T\ dry. normal. Musculoskeletal: No signs and/or symptoms reported regarding the musculoskeletal system. Circulation, motion, and sensation intact. Historical: - Allergies: 17:03 No Known Allergies; aj1 - Home Meds: 17:03 None [Active]; aj1 - PMHx: 17:03 None; aj1 - PSHx: 17:03 None; aj1 - Immunization history:: Flu vaccine is not up to date. - Social history:: Smoking status: Patient reports the use of cigarette tobacco products, 1-2 cigarettes per day. - Family history:: not pertinent. Screenin:05 Abuse screen: Denies threats or abuse. Denies injuries from another. Nutritional aj1 screening: No deficits noted. Tuberculosis screening: No symptoms or risk factors identified. Fall Risk None identified. Assessment: 17:05 Reassessment: see triage assessment. aj1 Vital Signs: 17:00 BP 144 / 94; Pulse 93; Resp 18; Temp 98.5; Pulse Ox 98% on R/A; Weight 108.86 kg (R); aj1 Height 5 ft. 11 in. (180.34 cm) (R); Pain 6/10; 17:00 Body Mass Index 33.47 (108.86 kg, 180.34 cm) aj1 ED Course: 16:51 Patient arrived in ED. mr 17:03 Triage completed. aj1 17:03 Arm band placed on Patient placed in an exam room. aj1 17:05 Patient has correct armband on for positive identification. Bed in low position. Call aj1 light in reach. 17:05 No provider procedures requiring assistance completed. aj1 17:07 Connie Goel, RN is Primary Nurse. iw 17:11 Eric Stokes MD is Attending Physician. casey 18:06 Minda Hawkins MD is Referral Physician. casey 18:24 Patient did not have IV access during this emergency room visit. iw Administered Medications: 18:27 Drug: Rocephin (cefTRIAXone) 1 grams Route: IM; Site: right ventrogluteal; iw 18:27 Drug: Decadron 10 mg Route: IM; Site: right deltoid; iw Outcome: 18:07 Discharge ordered by . casey 18:25 Discharged to home ambulatory. iw 18:25 Condition: good 18:25 Discharge instructions given to patient, Instructed on discharge instructions, follow up and referral plans. medication usage, Demonstrated understanding of instructions, follow-up care, medications, Prescriptions given X 3. 18:36 Patient left the ED. iw Signatures: Emmy Arvizu RN RN aj1 Eric Stokes MD MD cha Rivera, Stephany mr Connie Goel RN RN iw Corrections: (The following items were deleted from the chart) 17:03 17:00 BP 144 / 94; Pulse 93bpm; Resp 1bpm; Pulse Ox 98% RA; Temp 98.5F; 108.86 kg aj1 Reported; Height 5 ft. 11 in. Reported; BMI: 33.4; Pain 6/10; aj1
--- NOTE | 2020-01-07 18:07 | EDPHYS ---
Physician Documentation [facility] Name: Nba Rubio Age: 29 yrs Sex: Male : 1990 Arrival Date: 01/07/2020 Time: 16:51 Bed 23 Private MD: ED Physician Eric Stokes HPI: 01/06 18:01 This 29 yrs old Male presents to ER via Ambulatory with complaints of Sore casey Throat. 18:01 The patient presents with sore throat. The patient describes throat pain as burning, casey constant. Onset: The symptoms/episode began/occurred 3 day(s) ago. Severity of symptoms: At their worst the symptoms were mild, moderate, in the emergency department the symptoms are unchanged. Historical: - Allergies: 17:03 No Known Allergies; aj1 - Home Meds: 17:03 None [Active]; aj1 - PMHx: 17:03 None; aj1 - PSHx: 17:03 None; aj1 - Immunization history:: Flu vaccine is not up to date. - Social history:: Smoking status: Patient reports the use of cigarette tobacco products, 1-2 cigarettes per day. - Family history:: not pertinent. ROS: 18:01 Constitutional: Negative for fever, chills, and weight loss, Eyes: Negative for injury, casey pain, redness, and discharge, Neck: Negative for injury, pain, and swelling, Cardiovascular: Negative for chest pain, palpitations, and edema, Abdomen/GI: Negative for abdominal pain, nausea, vomiting, diarrhea, and constipation, Back: Negative for injury and pain, : Negative for injury, bleeding, discharge, and swelling, MS/Extremity: Negative for injury and deformity, Skin: Negative for injury, rash, and discoloration, Neuro: Negative for headache, weakness, numbness, tingling, and seizure, Psych: Negative for depression, anxiety, suicide ideation, homicidal ideation, and hallucinations, Allergy/Immunology: Negative for hives, rash, and allergies, Endocrine: Negative for neck swelling, polydipsia, polyuria, polyphagia, and marked weight changes, Hematologic/Lymphatic: Negative for swollen nodes, abnormal bleeding, and unusual bruising. 18:01 ENT: Positive for sore throat. 18:01 Respiratory: Positive for shortness of breath, at rest. Exam: 18:01 Constitutional: This is a well developed, well nourished patient who is awake, alert, casey and in no acute distress. Head/Face: Normocephalic, atraumatic. Eyes: Pupils equal round and reactive to light, extra-ocular motions intact. Lids and lashes normal. Conjunctiva and sclera are non-icteric and not injected. Cornea within normal limits. Periorbital areas with no swelling, redness, or edema. Neck: Trachea midline, no thyromegaly or masses palpated, and no cervical lymphadenopathy. Supple, full range of motion without nuchal rigidity, or vertebral point tenderness. No Meningismus. Chest/axilla: Normal chest wall appearance and motion. Nontender with no deformity. No lesions are appreciated. Cardiovascular: Regular rate and rhythm with a normal S1 and S2. No gallops, murmurs, or rubs. Normal PMI, no JVD. No pulse deficits. Abdomen/GI: Soft, non-tender, with normal bowel sounds. No distension or tympany. No guarding or rebound. No evidence of tenderness throughout. Back: No spinal tenderness. No costovertebral tenderness. Full range of motion. Male : Normal genitalia with no discharge or lesions. Skin: Warm, dry with normal turgor. Normal color with no rashes, no lesions, and no evidence of cellulitis. MS/ Extremity: Pulses equal, no cyanosis. Neurovascular intact. Full, normal range of motion. Neuro: Awake and alert, GCS 15, oriented to person, place, time, and situation. Cranial nerves II-XII grossly intact. Motor strength 5/5 in all extremities. Sensory grossly intact. Cerebellar exam normal. Normal gait. Psych: Awake, alert, with orientation to person, place and time. Behavior, mood, and affect are within normal limits. 18:01 ENT: Posterior pharynx: Airway: normal, Tonsils: with erythema, Uvula: edematous, swelling, that is mild, erythema, that is mild, exudate, is not appreciated, peritonsillar mass, is not appreciated, pooling of secretions, is not appreciated. 18:07 Musculoskeletal/extremity: DVT Exam: No signs of deep vein thrombosis. no pain, no casey swelling, no tenderness, negative Homans' sign noted on exam, no appreciated bluish discoloration, no erythema, no increased warmth. Vital Signs: 17:00 BP 144 / 94; Pulse 93; Resp 18; Temp 98.5; Pulse Ox 98% on R/A; Weight 108.86 kg (R); aj1 Height 5 ft. 11 in. (180.34 cm) (R); Pain 6/10; 17:00 Body Mass Index 33.47 (108.86 kg, 180.34 cm) aj1 MDM: 17:11 Patient medically screened. [facility] 18:04 Data reviewed: vital signs, nurses notes, lab test result(s), radiologic studies, plain casey films. 18:04 Differential diagnosis: epiglottitis, influenza, chlamydia pharyngitis, neisseria casey gonorrheoeae pharangitis, Mycoplasma Pharyngitis pharyngitis, pneumonia, pulmonary edema. Antibiotic administration: Rocephin and Zithromax given. The patient's Wells Deep Vein Thrombosis Score was calculated as follows: Total Score: 0-2 Pts- Low Risk. The patient's pulmonary embolism risk score was calculated as follows: Total Score: 0-2 points. This patient was found to be at low risk for a pulmonary embolism by using the Well's assessment criteria. Immunization status:. Immunization status:. Data interpreted: teletypesetter monitor: rate is 93 beats/min, rhythm is regular, Pulse oximetry: on room air is 98 %. Test interpretation: by ED physician or midlevel provider: plain radiologic studies. Administered Medications: 18:27 Drug: Rocephin (cefTRIAXone) 1 grams Route: IM; Site: right ventrogluteal; iw 18:27 Drug: Decadron 10 mg Route: IM; Site: right deltoid; iw Disposition: 01/07/20 18:07 Discharged to Home. Impression: Acute pharyngitis, Dyspnea. - Condition is Stable. - Discharge Instructions: Pharyngitis, Shortness of Breath, Shortness of Breath, Hgoj-iu-Bvne, Pharyngitis, Xxuq-fn-Dzok, Sore Throat, Oeri-pn-Nfoy. - Prescriptions for Robyn- D 12 Hour 60-120 mg Oral Tablet Sustained Release 12 hr - take 1 tablet by ORAL route every 12 hours As needed; 20 tablet. Medrol (Carlos) 4 mg Oral Tablets, Dose Pack - take 1 tablet by ORAL route as directed - follow package instructions; 1 packet. Zithromax 500 mg Oral Tablet - take 1 tablet by ORAL route once daily for 4 days; 4 tablet. - Medication Reconciliation Form, Thank You Letter, Antibiotic Education, Prescription Opioid Use, Work release form form. - Follow up: Private Physician; When: 2 - 3 days; Reason: Recheck today's complaints, Continuance of care, Re-evaluation by your physician. Follow up: Minda Hawkins MD; When: 2 - 3 days; Reason: Recheck today's complaints, Re-evaluation by your physician. - Problem is new. - Symptoms have improved. Signatures: Dispatcher [employer] EDEmmy Murphy RN RN aj1 Eric Stokes MD MD cha Williams, Irene, RN RN iw Corrections: (The following items were deleted from the chart) 18:36 18:07 01/07/2020 18:07 Discharged to Home. Impression: Acute pharyngitis; Dyspnea. iw Condition is Stable. Forms are Medication Reconciliation Form, Thank You Letter, Antibiotic Education, Prescription Opioid Use. Follow up: Private Physician; When: 2 - 3 days; Reason: Recheck today's complaints, Continuance of care, Re-evaluation by your physician. Follow up: Minda Hawkins; When: 2 - 3 days; Reason: Recheck today's complaints, Re-evaluation by your physician. Problem is new. Symptoms have improved. casey
[2020-01-07] MEDS ORDERED: dexAMETHasone 10 MG/ML VIAL ONE (18:27)
[2020-01-07] MEDS ORDERED: LIDOCAINE 1% MPF 5 ML VIAL ONE (18:27)
[2020-01-07] MEDS ORDERED: CEFTRIAXONE 1000 MG/VIAL ONE (18:28)
[2020-01-07 18:40] VITALS: BP 144/94; TEMP 98.5; O2SAT 98
== END 2020-01-07 18:36 | disposition home or self-care (01) ==
LOC: ER 16:48
DX: J02.9 Acute pharyngitis, unspecified (principal); R06.00 Dyspnea, unspecified; F17.210 Nicotine dependence, cigarettes, uncomplicated
CPT/HCPCS: 96372; 99283; J1100

== ENCOUNTER 2020-01-10 23:16 | Emergency (ER) | payer SELFPAY ==
--- OUTSIDE RECORDS SUMMARY | 2020-01-10 23:18 | XMS REPORT | Continuity of Care Document ---
:1990 Author Organization [facility] t Address [address] [place] [address] Care Team Providers Name Role Phone Unavailable [...] [facility] Promethazin Promethazin 2019- No Lizz [address] [facility] [address] [facility] HCl e HCl 05-12 [facility] as needed [facility] N[facility]V [facility] Procedures This patient has no known procedures. Encounters Start End Encounter Admission Attending Care Care Encounter Source Date/Time Date/Time Type Type Clinicians Facility Department ID 2019-05-12 2019-05-12 [facility] [id number] [facility] 15:00[facility] 15[facility]00:00 t [facility] Family Medicine Medicine Outpati ent Clinics Results This patient has no known results.
--- NOTE | 2020-01-11 01:29 | ER ---
Nurse's Notes [facility] Name: Nba Rubio Age: 29 yrs Sex: Male : 1990 Arrival Date: 01/10/2020 Time: 23:20 Bed 16 Private MD: Diagnosis: Cough;Shortness of breath Presentation: 01/09 23:26 Chief complaint: Patient states: felt like I was choking before I came here because I dm5 couldn't breathe. I was seen here earlier this week and they just looked at my throat but I think I need an xray. My throat feels better. but still having hard time breathing. Coronavirus screen: Client denies travel out of the [place] in the last 14 days. difficulty breathing, shortness of breath, sore throat, Client presents with at least one sign or symptom that may indicate coronavirus-19. Standard/surgical mask placed on the client. The client reports previous COVID testing was negative. Date of collection: January 04, 2020. Ebola Screen: Patient negative for fever greater than or equal to 101.5 degrees Fahrenheit, and additional compatible Ebola Virus Disease symptoms Patient denies exposure to infectious person. Patient denies travel to an Ebola-affected area in the 21 days before illness onset. No symptoms or risks identified at this time. Initial Sepsis Screen: Does the patient meet any 2 criteria? No. Patient's initial sepsis screen is negative. Does the patient have a suspected source of infection? No. Patient's initial sepsis screen is negative. Risk Assessment: Do you want to hurt yourself or someone else? Patient reports no desire to harm self or others. Onset of symptoms was January 03, 2020. 23:26 Method Of Arrival: Ambulatory dm5 23:26 Acuity: SHIVANI 4 dm5 Historical: - Allergies: 23:30 No Known Allergies; dm5 - Home Meds: 23:30 None [Active]; dm5 - PMHx: 23:30 Anxiety; dm5 - PSHx: 23:30 None; dm5 Screenin/24 01:15 Abuse screen: Denies threats or abuse. Denies injuries from another. Nutritional sg screening: No deficits noted. Tuberculosis screening: No symptoms or risk factors identified. Never had TB. Fall Risk None identified. Assessment: 01:15 General: Appears in no apparent distress. well groomed, well developed, well nourished, sg Behavior is calm, cooperative, appropriate for age. Pain: Complains of pain in chest Quality of pain is described as squeezing, that is intermittent. Pain: Pain does not radiate. Neuro: Level of Consciousness is awake, alert, obeys commands, Oriented to person, place, time, Speech is normal, Facial symmetry appears normal. Cardiovascular: Capillary refill is brisk in bilateral fingers Patient's skin is warm and dry. Respiratory: Reports shortness of breath on exertion cough that is non-productive, dry, Airway is patent Respiratory effort is even, unlabored, Respiratory pattern is regular, symmetrical. GI: No signs and/or symptoms were reported involving the gastrointestinal system. : No signs and/or symptoms were reported regarding the genitourinary system. EENT: No signs and/or symptoms were reported regarding the EENT system. Derm: Skin is pink, warm \T\ dry. Musculoskeletal: Circulation, motion, and sensation intact. Range of motion: intact in all extremities. Vital Signs: 01/09 23:26 BP 135 / 79; Pulse 76; Resp 18; Temp 97.4; Pulse Ox 99% on R/A; Weight 108.86 kg; dm5 Height 5 ft. 11 in. (180.34 cm); Pain 08/26; 01/10 01:00 BP 136 / 77; Pulse 76; Resp 16; Temp 97.4; Pulse Ox 99% on R/A; sg 01/09 23:26 Body Mass Index 33.47 (108.86 kg, 180.34 cm) dm5 ED Course: 01/09 23:20 Patient arrived in ED. bp1 23:30 Triage completed. dm5 23:30 Arm band placed on Patient placed in an exam room. dm5 23:34 Gayatri Branch FNP-C is PHCP. snw 23:34 Eric Stokes MD is Attending Physician. snw 01/10 01:02 Eric Stokes MD is Attending Physician. casey 01:08 Tee Urena, OSCAR is Primary Nurse. sg 01:15 Gayatri Branch FNP-C is PHCP. snw 01:15 Patient has correct armband on for positive identification. Bed in low position. Call sg light in reach. Pulse ox on. NIBP on. Warm blanket given. Head of bed elevated. 01:30 No provider procedures requiring assistance completed. Patient did not have IV access sg during this emergency room visit. Patient maintains SpO2 saturation greater than 95% on room air. 02:02 Chest Pa And Lat (2 Views) XRAY In Process Unspecified. EDMS Administered Medications: 01:31 Drug: Decadron 4 mg Route: PO; sg 01:32 Drug: Pepcid 20 mg Route: PO; sg Outcome: 01:29 Discharge ordered by . snthao 01:30 Discharged to home ambulatory, with friend. sg 01:30 Condition: good 01:30 Discharge instructions given to patient, Instructed on discharge instructions, follow up and referral plans. medication usage, safety practices, Demonstrated understanding of instructions, follow-up care, medications, Prescriptions given X 5 01:32 Patient left the ED. sg Signatures: Dispatcher [employer] EDMS Laura Junior, RN RN dmTee Lane RN RN sg Anderson, Corey, MD MD cha Waters, Shelly, ANESTHESIA TECH-C ANESTHESIA TECH-Csnw Fadia Neff bp1
--- NOTE | 2020-01-11 01:30 | EDPHYS ---
Physician Documentation [facility] Name: Nba Rubio Age: 29 yrs Sex: Male : 1990 Arrival Date: 01/10/2020 Time: 23:20 Bed 16 Private MD: ED Physician Eric Stokes HPI: 01/10 01:15 This 29 yrs old Male presents to ER via Ambulatory with complaints of Chest snw Pain, Shortness Of Breath. 01:15 Onset: The symptoms/episode began/occurred last week, and became persistent. Associated snw signs and symptoms: The patient has no apparent associated signs or symptoms. Modifying factors: The patient symptoms are alleviated by nothing. It is unknown whether or not the patient has had similar symptoms in the past. The patient has been recently seen by a physician: 1 week(s) ago, with similar presenting complaints, pt states his throat and some other symptoms he reported last week have resolved but states he is still short of breath. denies fever. Historical: - Allergies: 01/09 23:30 No Known Allergies; dm5 - Home Meds: 23:30 None [Active]; dm5 - PMHx: 23:30 Anxiety; dm5 - PSHx: 23:30 None; dm5 ROS: 01/10 01:15 Constitutional: Negative for fever, chills, and weight loss, Eyes: Negative for injury, snw pain, redness, and discharge, ENT: Negative for injury, pain, and discharge, Neck: Negative for injury, pain, and swelling, Cardiovascular: Negative for chest pain, palpitations, and edema, Abdomen/GI: Negative for abdominal pain, nausea, vomiting, diarrhea, and constipation, Back: Negative for injury and pain, : Negative for injury, bleeding, discharge, and swelling, MS/Extremity: Negative for injury and deformity, Skin: Negative for injury, rash, and discoloration, Neuro: Negative for headache, weakness, numbness, tingling, and seizure, Psych: Negative for depression, anxiety, suicide ideation, homicidal ideation, and hallucinations. Respiratory: Positive for shortness of breath, at rest. Exam: 01:15 Constitutional: This is a well developed, well nourished patient who is awake, alert, snw and in no acute distress. Head/Face: Normocephalic, atraumatic. Eyes: Pupils equal round and reactive to light, extra-ocular motions intact. Lids and lashes normal. Conjunctiva and sclera are non-icteric and not injected. Cornea within normal limits. Periorbital areas with no swelling, redness, or edema. ENT: Nares patent. No nasal discharge, no septal abnormalities noted. Tympanic membranes are normal and external auditory canals are clear. Oropharynx with no redness, swelling, or masses, exudates, or evidence of obstruction, uvula midline. Mucous membranes moist. Neck: Trachea midline, no thyromegaly or masses palpated, and no cervical lymphadenopathy. Supple, full range of motion without nuchal rigidity, or vertebral point tenderness. No Meningismus. Chest/axilla: Normal chest wall appearance and motion. Nontender with no deformity. No lesions are appreciated. Cardiovascular: Regular rate and rhythm with a normal S1 and S2. No gallops, murmurs, or rubs. Normal PMI, no JVD. No pulse deficits. Respiratory: Lungs have equal breath sounds bilaterally, clear to auscultation and percussion. No rales, rhonchi or wheezes noted. No increased work of breathing, no retractions or nasal flaring. Abdomen/GI: Soft, non-tender, with normal bowel sounds. No distension or tympany. No guarding or rebound. No evidence of tenderness throughout. Back: No spinal tenderness. No costovertebral tenderness. Full range of motion. Skin: Warm, dry with normal turgor. Normal color with no rashes, no lesions, and no evidence of cellulitis. MS/ Extremity: Pulses equal, no cyanosis. Neurovascular intact. Full, normal range of motion. Neuro: Awake and alert, GCS 15, oriented to person, place, time, and situation. Cranial nerves II-XII grossly intact. Motor strength 5/5 in all extremities. Sensory grossly intact. Cerebellar exam normal. Normal gait. Psych: Awake, alert, with orientation to person, place and time. Behavior, mood, and affect are within normal limits. Vital Signs: 01/09 23:26 BP 135 / 79; Pulse 76; Resp 18; Temp 97.4; Pulse Ox 99% on R/A; Weight 108.86 kg; dm5 Height 5 ft. 11 in. (180.34 cm); Pain 5/10; 01/10 01:00 BP 136 / 77; Pulse 76; Resp 16; Temp 97.4; Pulse Ox 99% on R/A; sg 01/09 23:26 Body Mass Index 33.47 (108.86 kg, 180.34 cm) dm5 MDM: 01:03 Patient medically screened. [facility] 01/09 23:35 Order name: Chest Pa And Lat (2 Views) XRAY snw Administered Medications: 01:31 Drug: Decadron 4 mg Route: PO; 01:32 Drug: Pepcid 20 mg Route: PO; sg Disposition: 01/11/20 01:29 Discharged to Home. Impression: Cough, Shortness of breath. - Condition is Stable. - Discharge Instructions: Shortness of Breath, Cool Mist Vaporizer, Cough, Adult. - Prescriptions for Tessalon Perles 100 mg Oral Capsule - take 1 capsule by ORAL route every 8 hours As needed; 15 capsule. Prednisone 20 mg Oral Tablet - take 2 tablet by ORAL route once daily for 5 days; 10 tablet. Albuterol Sulfate 90 mcg/actuation - inhale 1-2 puff by INHALATION route every 4-6 hours; 1 Inhaler. Pepcid 20 mg Oral Tablet - take 1 tablet by ORAL route once daily; 20 tablet. - Work release form, Medication Reconciliation Form, Thank You Letter, Antibiotic Education, Prescription Opioid Use form. - Follow up: Emergency Department; When: As needed; Reason: Worsening of condition. Follow up: Private Physician; When: 1 - 2 days; Reason: Recheck today's complaints, Continuance of care, Re-evaluation by your physician. Addendum: 01/12/2020 11:11 Co-signature as Attending Physician, Eric Stokes MD I agree with the assessment and c nuñez plan of care. Signatures: Dispatcher [employer] EDMT Laura Junior RN RN dm5 Tee Urena RN RN sg Anderson, Corey, MD MD cha Waters, Shelly, TYPEWRITER REPAIRER-C TYPEWRITER REPAIRER-Csnw Corrections: (The following items were deleted from the chart) 01/10 01:32 01:29 01/11/2020 01:29 Discharged to Home. Impression: Cough; Shortness of breath. sg Condition is Stable. Forms are Medication Reconciliation Form, Thank You Letter, Antibiotic Education, Prescription Opioid Use. Follow up: Emergency Department; When: As needed; Reason: Worsening of condition. Follow up: Private Physician; When: 1 - 2 days; Reason: Recheck today's complaints, Continuance of care, Re-evaluation by your physician. snw
[2020-01-11 01:45] VITALS: BP 135/79; TEMP 97.4; O2SAT 99
[2020-01-11] MEDS ORDERED: FAMOTIDINE 20 MG TAB ONE (01:49)
[2020-01-11] MEDS ORDERED: dexAMETHasone 4 MG TAB ONE (01:49)
--- NOTE | 2020-01-11 08:39 | RAD REPORT ---
EXAM DESCRIPTION: RAD - Chest Pa And Lat (2 Views) - 01/11/2020 2:01 am CLINICAL HISTORY: Chest pain;SOB COMPARISON: May 2017 TECHNIQUE: Frontal and lateral views of the chest were obtained. FINDINGS: The lungs are clear. Heart size is normal and central vasculature is within normal limit s. No pleural effusion or pneumothorax seen. No acute bony finding noted. No aortic abnormality. IMPRESSION: No acute cardiopulmonary process. No significant interval change.
== END 2020-01-11 01:32 | disposition home or self-care (01) ==
LOC: ER 23:16
DX: R05 Cough (principal)
CPT/HCPCS: 71046; 99284; J8540

== ENCOUNTER 2021-12-04 11:58 | Emergency (ER) | payer SELFPAY ==
--- OUTSIDE RECORDS SUMMARY | 2021-12-04 12:00 | XMS REPORT | Continuity of Care Document ---
:1990 Author Organization [facility] t Address [address] [place] [address] Care Team Providers Name Role Phone Lizz [facility] Attending Clinician Unavailable Problems Condition Condition Condition Status Onset Resolution Last Treating Co mments Source Name Details Category Date Date Treatment Clinician Date Nausea and Nausea and Diagnosis Active Common vomiting, vomiting, Spir it intractabi intractabi - [facility] vomiting vomiting [facility] not not Medical specified, specified, Ce nter unspecifie unspecifie d vomiting d vomiting type type Gastroesop Gastroesop Diagnosis Active Common hageal hageal [facility] reflux reflux - [facility] disease, disease, St esophagiti esophagiti [place] [facility] s presence s presence Me dical not not Center specified specified Allergies, Adverse Reactions, Alerts This patient has no known allergies or adverse reactions. Medications Ordered Filled Start Stop Current Ordering Indication Dosage Frequency Signature Comments Components Source Medication Medication Date Date Medication? Clinician (SIG) Name Name Prevacid Prevacid Yes Lizz 1 capsule [facility] 05-12 [facility] 00:00: - [facility] Promethazin Promethazin 2019- No Lizz 1 tablet [facility] e HCl e HCl 05-12 [facility] as needed [facility] 00:00: 00:00 for N/V - [facility] 00 [facility]00 [facility] Procedures This patient has no known procedures. Encounters Start End Encounter Admission Attending Care Care Encounter Source Date/Time Date/Time Type Type Clinicians Facility Department ID 2021-05-14 Outpatient JASPREET [facility] [id number] Common 11:03:08 Lizz [id number] [facility] 2019-05-12 2019-05-12 Outpatient Daiana Ahmadit [id number] Common 15:00:00 15:00:[address] [facility] Results This patient has no known results.
--- NOTE | 2021-12-04 14:18 | EDPHYS ---
Physician Documentation [facility] Name: Nba Rubio Age: 31 yrs Sex: Male : 1990 Arrival Date: 12/04/2021 Time: 12:01 Bed 26 Private MD: ED Physician Eric Stokes HPI: 12/04 12:15 This 31 yrs old Male presents to ER via Ambulatory with complaints of Sore jh7 Throat. 12:15 The patient presents with sore throat. The patient describes throat pain as scratchy. jh7 Onset: The symptoms/episode began/occurred 2 day(s) ago. Patient presents with cough, mild chest congestion, and sore throat for the past 2 days. Denies any other symptoms or medical problems.. Historical: - Allergies: 12:07 No Known Allergies; ap3 - Home Meds: 12:07 None [Active]; ap3 - PMHx: 12:07 Anxiety; ap3 - Immunization history:: Client reports having NOT received the Covid vaccine. - Social history:: Smoking status: Patient denies any tobacco usage or history of. Patient uses alcohol, occasionally. ROS: 14:35 Constitutional: Negative for fever, chills, and weight loss, Eyes: Negative for injury, jh7 pain, redness, and discharge, Neck: Negative for injury, pain, and swelling, Cardiovascular: Negative for chest pain, palpitations, and edema, Respiratory: Negative for shortness of breath, cough, wheezing, and pleuritic chest pain, Abdomen/GI: Negative for abdominal pain, nausea, vomiting, diarrhea, and constipation, Back: Negative for injury and pain, Skin: Negative for injury, rash, and discoloration, Neuro: Negative for headache, weakness, numbness, tingling, and seizure. 14:35 ENT: Positive for Postnasal drainage. 14:35 All other systems are negative. 14:35 ENT: Positive for sore throat. jh7 14:35 Respiratory: Positive for cough, Negative for wheezing. Exam: 14:35 Constitutional: This is a well developed, well nourished patient who is awake, alert, jh7 and in no acute distress. Head/Face: Normocephalic, atraumatic. Neck: Trachea midline, no thyromegaly or masses palpated, and no cervical lymphadenopathy. Supple, full range of motion without nuchal rigidity, or vertebral point tenderness. No Meningismus. Cardiovascular: Regular rate and rhythm with a normal S1 and S2. No gallops, murmurs, or rubs. Normal PMI, no JVD. No pulse deficits. Respiratory: Lungs have equal breath sounds bilaterally, clear to auscultation and percussion. No rales, rhonchi or wheezes noted. No increased work of breathing, no retractions or nasal flaring. Abdomen/GI: Soft, non-tender, with normal bowel sounds. No distension or tympany. No guarding or rebound. No evidence of tenderness throughout. Back: No spinal tenderness. No costovertebral tenderness. Full range of motion. Skin: Warm, dry with normal turgor. Normal color with no rashes, no lesions, and no evidence of cellulitis. Neuro: Awake and alert, GCS 15, oriented to person, place, time, and situation. Normal gait. 14:35 ENT: Postnasal drainage. Vital Signs: 12:06 BP 120 / 83 RA Sitting (auto/lg); Pulse 72; Resp 18; Temp 97.9; Pulse Ox 100% ; Weight ap3 108.86 kg; Height 5 ft. 11 in. (180.34 cm); 12:27 BP 122 / 68; Pulse 74; Resp 18; Pulse Ox 98% on R/A; ld1 14:04 BP 112 / 54; Pulse 69; Resp 18; Pulse Ox 100% on R/A; ld1 12:06 Body Mass Index 33.47 (108.86 kg, 180.34 cm) ap3 MDM: 12:19 Patient medically screened. [facility] 14:20 Differential diagnosis: Allergic rhinitis, pharyngitis, upper respiratory infection, [facility] viral syndrome. Data reviewed: vital signs, nurses notes, lab test result(s). Data interpreted: Pulse oximetry: is 100 %. Interpretation: normal. Counseling: I had a detailed discussion with the patient and/or guardian regarding: the historical points, exam findings, and any diagnostic results supporting the discharge/admit diagnosis, to return to the emergency department if symptoms worsen or persist or if there are any questions or concerns that arise at home. 12/04 12:21 Order name: Strep; Complete Time: 13:51 [facility] 12/04 12:21 Order name: SARS-COV-2 RT PCR (Document "Date of Onset" if Symptomatic); Complete Time: [facility] 14:17 12/04 13:48 Order name: Throat Culture EDMS Administered Medications: No medications were administered Disposition Summary: 12/04/21 14:17 Discharge Ordered Location: Home [facility] Problem: new [facility] Symptoms: are unchanged [facility] Condition: Stable [facility] Diagnosis - Coronavirus infection, unspecified [facility] Followup: [facility] - With: Private Physician - When: 2 - 3 days - Reason: Recheck today's complaints Discharge Instructions: - Discharge Summary Sheet [facility] - COVID-19 [facility] - COVID-19 Frequently Asked Questions [facility] - 10 Things You Can Do to Manage Your COVID-19 Symptoms at Home - [place] [id number] Forms: - Medication Reconciliation Form [facility] - Thank You Letter [facility] - Work release form eb Prescriptions: - ProAir HFA 90 mcg/actuation Inhalation HFA aerosol inhaler - inhale 2 puff by INHALATION route every 4-6 hours As needed; 1 Inhaler; [facility] Refills: 0, Product Selection Permitted - Tessalon Perles 100 mg Oral Capsule - take 1 capsule by ORAL route every 8 hours As needed; 15 capsule; Refills: 0, [facility] Product Selection Permitted Signatures: Dispatcher [employer] Keyana Mcdonough RN RN ap3 Melissa Gu FNP MACHINE II TRIMMER [facility] Corrections: (The following items were deleted from the chart) 14:36 12:15 Onset: The symptoms/episode began/occurred 2 day(s) ago, [place] [id number]
--- NOTE | 2021-12-04 14:18 | ER ---
Nurse's Notes [facility] Name: Nba Rubio Age: 31 yrs Sex: Male : 1990 Arrival Date: 12/04/2021 Time: 12:01 Bed 26 Private MD: Diagnosis: Coronavirus infection, unspecified Presentation: 12/04 12:06 Chief complaint: Patient states: he has been having a cough for 2 days, and patient ap3 states that when he coughs, his throat hurts. Coronavirus screen: At this time, the client does not indicate any symptoms associated with coronavirus-19. Ebola Screen: No symptoms or risks identified at this time. Initial Sepsis Screen: Does the patient meet any 2 criteria? No. Patient's initial sepsis screen is negative. Does the patient have a suspected source of infection? No. Patient's initial sepsis screen is negative. Risk Assessment: Do you want to hurt yourself or someone else? Patient reports no desire to harm self or others. Onset of symptoms was December 02, 2021. 12:06 Method Of Arrival: Ambulatory ap3 12:06 Acuity: SHIVANI 4 ap3 Triage Assessment: 12:07 General: Appears in no apparent distress. distressed, Behavior is calm, cooperative, ap3 appropriate for age. Pain: Complains of pain in throat. EENT: Reports pain when swallowing. Neuro: Level of Consciousness is awake, alert, obeys commands, Oriented to person, place, time, situation, Appropriate for age Gait is steady, Speech is normal. Cardiovascular: Patient's skin is warm and dry. Respiratory: Reports cough that is Airway is patent Respiratory effort is even, unlabored. Historical: - Allergies: 12:07 No Known Allergies; ap3 - Home Meds: 12:07 None [Active]; ap3 - PMHx: 12:07 Anxiety; ap3 - Immunization history:: Client reports having NOT received the Covid vaccine. - Social history:: Smoking status: Patient denies any tobacco usage or history of. Patient uses alcohol, occasionally. Screenin:08 Abuse screen: Denies threats or abuse. Nutritional screening: No deficits noted. ap3 Tuberculosis screening: No symptoms or risk factors identified. Fall Risk None identified. Assessment: 12:27 General: Appears in no apparent distress. comfortable, Behavior is calm, cooperative, ld1 appropriate for age. Pain: Denies pain. Neuro: Level of Consciousness is awake, alert, obeys commands, Oriented to person, place, time, situation. Cardiovascular: Capillary refill < 3 seconds Patient's skin is warm and dry. Respiratory: Airway is patent Respiratory effort is even, unlabored, Breath sounds are clear bilaterally. GI: Abdomen is round non-distended. : No signs and/or symptoms were reported regarding the genitourinary system. EENT: No signs and/or symptoms were reported regarding the EENT system. Throat is pink Reports sore throat. Derm: No signs and/or symptoms reported regarding the dermatologic system. Musculoskeletal: No signs and/or symptoms reported regarding the musculoskeletal system. Vital Signs: 12:06 BP 120 / 83 RA Sitting (auto/lg); Pulse 72; Resp 18; Temp 97.9; Pulse Ox 100% ; Weight ap3 108.86 kg; Height 5 ft. 11 in. (180.34 cm); 12:27 BP 122 / 68; Pulse 74; Resp 18; Pulse Ox 98% on R/A; ld1 14:04 BP 112 / 54; Pulse 69; Resp 18; Pulse Ox 100% on R/A; ld1 12:06 Body Mass Index 33.47 (108.86 kg, 180.34 cm) ap3 ED Course: 12:01 Patient arrived in ED. mr 12:07 Triage completed. ap3 12:08 Arm band placed on right wrist. ap3 12:09 [facility] jh7 12:09 Eric Stokes MD is Attending Physician. jh 12:18 Katerine Goode, OSCAR is Primary Nurse. ld1 12:27 Patient has correct armband on for positive identification. Bed in low position. Call ld1 light in reach. Side rails up X2. Pulse ox on. NIBP on. Door closed. Noise minimized. 12:27 No provider procedures requiring assistance completed. Patient did not have IV access ld1 during this emergency room visit. 12:29 SARS-COV-2 RT PCR (Document "Date of Onset" if Symptomatic) Sent. ld1 12:29 Strep Sent. ld1 Administered Medications: No medications were administered Medication: 12:27 VIS not applicable for this client. ld1 Outcome: 14:17 Discharge ordered by . [facility] 15:06 Discharged to home ambulatory. ld1 15:06 Condition: stable 15:06 Discharge instructions given to patient, Instructed on discharge instructions, follow up and referral plans. medication usage, Demonstrated understanding of instructions, follow-up care, medications, Prescriptions given X 2. 15:07 Patient left the ED. ld1 Signatures: HernandezStephany powell ShannafatemehKeyana RN RN ap3 Katerine Goode RN RN ld1 Melissa Gu FNP ERP IMPLEMENTATION CONSULTANT jh7
[2021-12-04 15:13] VITALS: TEMP 97.9
[2021-12-04 15:20] VITALS: BP 112/54; O2SAT 100
== END 2021-12-04 15:07 | disposition home or self-care (01) ==
LOC: ER 11:58
DX: U07.1 COVID-19 (principal)
CPT/HCPCS: 87070; 87081; 99283; U0003

== ENCOUNTER 2022-12-17 16:30 | Emergency (ER) | payer SELFPAY ==
--- OUTSIDE RECORDS SUMMARY | 2022-12-17 16:58 | XMS REPORT | Continuity of Care Document ---
:1990 Author Organization [facility] t Address [address] [place] [address] Care Team Providers Name Role Phone Pcp, Patient Does Not Have A Primary Care Physician +[id number] Lizz Maxwell Attending Clinician Unavailable Melina Damon Attending Clinician MELINA BALES Attending Clinician Unavailable Problems Condition Condition Condition [...] Center specified specified Allergies, Adverse Reactions, Alerts Allergy Allergy Status Severity Reaction(s) Onset Inactive Treating Comm ents Source Name Type Date Date Clinician NO KNOWN Drug Active [facility] [place] [facility] Social History Social Habit Start Date Stop Date Quantity Comments Source Exposure to 2022-07-25 2022-08-04 Not sure [facility] SARS-CoV-2 (event) 00:00:00 11:08:00 Medica l Branch Sex Assigned At [birth year] [facility] 00:00:00 00:00:00 Medical Branch Smoking Status Start Date Stop Date Source Tobacco smoking consumption [facility] [place] [facility] Medications Ordered Filled Start Stop Current Ordering Indication Dosage Frequency Signature Comments Components Source Medication Medication Date Date Medication? Clinician (SIG) Name Name dexamethaso No 10mg 10 mg, Uni vers ne sod phos 08-04 Oral, ity of PF 17:45: 17:55 ONCE, 1 [place] injection 00 :00 dose, On Medica l 10 mg [facility] 08/04/22 at 1245, 1 mL Prevacid Prevacid Yes Lizz 1 capsule Common 05-12 [facility] 00:00: - [facility] 00 [facility] Promethazin Promethazin 2020- No Lizz 1 tablet Common e HCl e HCl 05-12 Maxwell as needed [facility] 00:00: 00:00 for N/V - [facility] 00 :00 [facility] Vital Signs Vital Name Observation Time Observation Value Comments Source Systolic blood 2022-08-04 16:09:00 147 mm[Hg] Univer sity of pressure [facility] Diastolic blood 2022-08-04 16:09:00 69 mm[Hg] Unive rsity of [facility] Heart rate 2022-08-04 16:09:00 72 /min [facility] Body temperature 2022-08-04 16:09:00 37.22 [facility] Respiratory rate 2022-08-04 16:09:00 [facility] /[facility] Body height 2022-08-04 16:09:00 177.8 cm [facility] Body weight 2022-08-04 16:09:00 104.327 kg [facility] BMI 2022-08-04 16:09:00 33.00 kg/m2 [facility] Oxygen saturation in 2022-08-04 16:09:00 100 /min [facility] blood by [facility] Pulse oximetry Branch Procedures Procedure Date / Time Performed Performing Clinician Nuris e RAPID STREP SCREEN 2022-08-04 16:42:00 Melina Bales [facility] FOR GROUP A Medical Branch COVID-19 (ID NOW 2022-08-04 16:42:00 Melina Bales [facility] RAPID TESTING) Medical Branch NOTICE OF PRIVACY 2022-08-04 16:02:15 Doctor Unassigned, No Univ [facility] PRACTICES Name Medical Branch Encounters Start End Encounter Admission Attending Care Care Encounter Source Date/Time Date/Time Type Type Clinicians Facility Department ID 2021-05-[address] [facility] [id number] Common 11:03:08 Lizz [id number] [facility] 2022-08-04 2022-08-04 Emergency АЛЕКСАНДР Bales [id number] Univers 11:09:00 13:07:00 Melina Currie [place] [id number] i ty [facility] [id number] [facility] [id number] [facility] 084 Branch 2022-08-04 2022-08-04 Emergency X АЛЕКСАНДР BALES ERT [id number] Univers 11:09:00 13:07:00 MELINA singh [facility] Branch 2019-05-12 2019-05-12 Outpatient Brazvalarie Ahmadit [id number] Common 15:00:00 15:00:00 [facility] Results This patient has no known results.
[2022-12-17] MEDS ORDERED: LIDOCAINE 1% MPF 5 ML VIAL ONE (17:21)
--- NOTE | 2022-12-17 17:26 | ER ---
Nurse's Notes [facility] Name: Nba Rubio Age: 32 yrs Sex: Male : 1990 Arrival Date: 12/17/2022 Time: 16:30 Bed 11 Private MD: Diagnosis: Abscess of left external ear Presentation: 12/17 17:13 Chief complaint: Patient states: "I have a abscess behind my left ear for the past mb9 week". Coronavirus screen: At this time, the client does not indicate any symptoms associated with coronavirus-19. Ebola Screen: No symptoms or risks identified at this time. Initial Sepsis Screen: Does the patient meet any 2 criteria? No. Patient's initial sepsis screen is negative. Does the patient have a suspected source of infection? No. Patient's initial sepsis screen is negative. Risk Assessment: Do you want to hurt yourself or someone else? Patient reports no desire to harm self or others. Onset of symptoms was December 17, 2022. 17:13 Method Of Arrival: Ambulatory mb9 17:13 Acuity: SHIVANI 4 mb9 Triage Assessment: 17:14 General: Appears in no apparent distress. Behavior is calm, cooperative. Pain: mb9 Complains of pain in left mastoid area. EENT: No signs and/or symptoms were reported regarding the EENT system. Neuro: Orellana Agitation-Sedation Scale (RASS): 0 - Alert and Calm Level of Consciousness is awake, alert, obeys commands, Oriented to person, place, time, situation, Appropriate for age. Cardiovascular: Patient's skin is warm and dry. Respiratory: Airway is patent Respiratory effort is even, unlabored, Respiratory pattern is regular, symmetrical. GI: No signs and/or symptoms were reported involving the gastrointestinal system. : No signs and/or symptoms were reported regarding the genitourinary system. Derm: Skin is pink, warm \\T\\ dry. Abscess located on left ear is nickel sized, is hot to touch, is red, is raised. Musculoskeletal: Range of motion: intact in all extremities. Historical: - Allergies: 17:16 No Known Allergies; mb9 - Home Meds: 17:16 None [Active]; mb9 - PMHx: 17:16 Anxiety; mb9 - PSHx: 17:16 None; mb9 - Immunization history:: Adult Immunizations up to date. - Social history:: Smoking status: Reported history of juuling and/or vaping. Screenin:[address] [facility] ED Fall Risk Assessment (Adult) History of falling in the last 3 months, mb9 including since admission No falls in past 3 months (0 pts) Confusion or Disorientation No (0 pts) Intoxicated or Sedated No (0 pts) Impaired Gait No (0 pts) Mobility Assist Device Used No (0 pt) Altered Elimination No (0 pt) Score/Fall Risk Level 0 - 2 = Low Risk Oriented to surroundings, Maintained a safe environment, Educated pt \\T\\ family on fall prevention, incl call for assistance when getting out of bed. Abuse screen: Denies threats or abuse. Nutritional screening: No deficits noted. Tuberculosis screening: No symptoms or risk factors identified. Assessment: 17:16 Reassessment: see triage assessment. mb9 17:32 Reassessment: No changes from previously documented assessment. Patient and/or family ll1 updated on plan of care and expected duration. Pain level reassessed. Patient is alert, oriented x 3, equal unlabored respirations, skin warm/dry/pink. Vital Signs: 17:13 BP 138 / 78; Pulse 79; Resp 18; Temp 98.6; Pulse Ox 100% on R/A; Weight 97.52 kg; mb9 Height 5 ft. 11 in. ; Pain 7/10; 17:32 BP 127 / 85; Pulse 65; Resp 17; Pulse Ox 100% on R/A; ll1 17:13 Body Mass Index 29.99 (97.52 kg, 180.34 cm) mb9 17:13 Pain Scale: Adult mb9 ED Course: 16:34 Patient arrived in ED. ts1 16:35 Kacy Rangel PA-C is PHCP. sb4 16:35 Andrew Greenfield MD is Attending Physician. sb4 17:08 Stephany López, OSCAR is Primary Nurse. mb9 17:13 Arm band placed on. mb9 17:14 Triage completed. mb9 17:16 Bed in low position. Call light in reach. Side rails up X 1. Client placed on mb9 continuous cardiac and pulse oximetry monitoring. NIBP monitoring applied. 17:16 No provider procedures requiring assistance completed. mb9 17:33 Provided Education on: n/a. ll1 17:33 Patient did not have IV access during this emergency room visit. ll1 Administered Medications: 17:17 Drug: Lidocaine Infiltration (1 %) 5 ml Volume: 5 ml; Route: Infiltration; mb9 17:28 Follow up: Response: No adverse reaction ll1 Medication: 17:16 VIS not applicable for this client. mb9 Outcome: 17:26 Discharge ordered by . [email or web address] 17:33 Discharged to home ambulatory. 1 17:33 Condition: stable 17:33 Discharge instructions given to patient, Instructed on discharge instructions, follow up and referral plans. medication usage, wound care, Demonstrated understanding of instructions, follow-up care, medications, wound care, Prescriptions given X 1. 17:33 Patient left the ED. 1 Signatures: Chaparro Alvarez RN RN ll1 Kacy Rangel, PAAlbanC PAAlbanC Stephany Novoa RN RN mb9 Melina Howell, RANULFO PAS ts1
--- NOTE | 2022-12-17 17:26 | EDPHYS ---
Physician Documentation [facility] Name: Nba Rubio Age: 32 yrs Sex: Male : 1990 Arrival Date: 12/17/2022 Time: 16:30 Bed 11 Private MD: ED Physician Andrew Greenfield HPI: 12/17 17:08 This 32 yrs old Male presents to ER via Unassigned with complaints of Boil. sb4 17:08 The patient presents with an abscess of the left mastoid area. Description: The sb4 affected area is small, confluent, well demarcated, erythematous, fluctuant, warm. Onset: The symptoms/episode began/occurred 2 day(s) ago. Possible cause(s): unknown, insect sting. Associated signs and symptoms: Pertinent positives: erythema, Pertinent negatives: fever. Modifying factors: the symptoms are alleviated by nothing, the symptoms are aggravated by squeezing the lesion and expressing the contents. The patient has not experienced similar symptoms in the past. The patient has not recently seen a physician. Historical: - Allergies: 17:16 No Known Allergies; mb9 - Home Meds: 17:16 None [Active]; mb9 - PMHx: 17:16 Anxiety; mb9 - PSHx: 17:16 None; mb9 - Immunization history:: Adult Immunizations up to date. - Social history:: Smoking status: Reported history of juuling and/or vaping. ROS: 17:08 Constitutional: Negative for fever, chills, and weight loss. sb4 17:08 Skin: Positive for abscess. 17:08 All other systems are negative. Exam: 17:08 Constitutional: This is a well developed, well nourished patient who is awake, alert, sb4 and in no acute distress. 17:08 Skin: abscess, that is small, approximately 1 cm(s), of the left mastoid area, with fluctuance, that is moderate. Vital Signs: 17:13 BP 138 / 78; Pulse 79; Resp 18; Temp 98.6; Pulse Ox 100% on R/A; Weight 97.52 kg; mb9 Height 5 ft. 11 in. ; Pain 7/10; 17:32 BP 127 / 85; Pulse 65; Resp 17; Pulse Ox 100% on R/A; ll1 17:13 Body Mass Index 29.99 (97.52 kg, 180.34 cm) mb9 17:13 Pain Scale: Adult mb9 Procedures: 17:30 I \T\ D: Incision and drainage was performed for an abscess of the left left mastoid area sb4 Prepped with Betadine, Anesthetized with 3 ml's 1% Lidocaine. Incised with #11 blade. Drained small amount bloody fluid. Dressinx2 gauze the patient tolerated the procedure well. MDM: 16:48 Patient medically screened. sb4 17:08 Differential diagnosis: abscess, allergic reaction, cellulitis, insect bite. sb4 17:25 Data reviewed: vital signs, nurses notes, and as a result, I will discharge patient. sb4 Counseling: I had a detailed discussion with the patient and/or guardian regarding the historical points, exam findings, and any diagnostic results supporting the discharge/admit diagnosis, to return to the emergency department if symptoms worsen or persist or if there are any questions or concerns that arise at home. 12/17 17:05 Order name: Incision \T\ Drainage Setup; Complete Time: 17:12 sb4 Administered Medications: 17:17 Drug: Lidocaine Infiltration (1 %) 5 ml Volume: 5 ml; Route: Infiltration; mb9 17:28 Follow up: Response: No adverse reaction ll1 Disposition: 17:44 Co-signature as Attending Physician, Andrew Greenfield MD I reviewed the patient's care rn provided by the Advanced Practice Provider and agree with the diagnosis and treatment plan. Disposition Summary: 12/17/22 17:26 Discharge Ordered Location: Home sb4 Problem: new sb4 Symptoms: have improved sb4 Condition: Stable sb4 Diagnosis - Abscess of left external ear sb4 Followup: sb4 - With: Private Physician - When: As needed - Reason: Recheck today's complaints, Continuance of care, Re-evaluation by your physician Discharge Instructions: - Discharge Summary Sheet sb4 - Skin Abscess sb4 - Incision and Drainage sb4 Forms: - Medication Reconciliation Form sb4 - Thank You Letter sb4 - Antibiotic Education sb4 - Prescription Opioid Use sb4 - Patient Portal Instructions sb4 - Leadership Thank You Letter sb4 Prescriptions: - Cephalexin 500 mg Oral Capsule - take 1 capsule by ORAL route every 8 hours for 10 days; 30 capsule; Refills: 0, sb4 Product Selection Permitted Signatures: Andrew Greenfield MD MD rn Brown, Sophia, PA-C PA-C sb4 Maribel, Stephany Murphy, RN RN mb9 Chaparro Alvarez RN ll1
[2022-12-17 18:27] VITALS: TEMP 98.6; O2SAT 100
[2022-12-17 18:28] VITALS: BP 127/85
== END 2022-12-17 17:33 | disposition home or self-care (01) ==
LOC: ER 16:30
PROC: 0H93XZZ Drainage of Left Ear Skin, External Approach (ICD-10-PCS; principal; 2022-12-17)
DX: H60.02 Abscess of left external ear (principal)
CPT/HCPCS: 99283; J2001

== ENCOUNTER → 2023-06-05 | Emergency (ER) | payer SELFPAY ==
--- OUTSIDE RECORDS SUMMARY | 2023-06-05 11:38 | XMS REPORT | Continuity of Care Document ---
Author Name Unknown Address [address] 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 Name Role Phone PCP, PATIENT DOES NOT HAVE A Primary Care Physic catherine Unavailable Lizz Maxwell Attending Clinician Unavailable Christianne Haley Attending Clinician [phone] Christianne FERREIRA Attending Clinician Unavailable Melina Damon Attending Clinician [phone] MELINA BALES Attending Clinician Unavailable Problems Condition Name Condition Details Condition Category Status Onset Date Resolution Date Last Treatment Date Treating Clinician Comments Source Nausea and vomiting, intractabi lity of vomiting not specified, unspecifie d vomiting type Nausea and vomiting, intractabi lity of vomiting not specified, unspecifie d vomiting type Diagnosis Active [facility] Gastroesop hageal reflux disease, esophagiti s presence not specified Gastroesop hageal reflux disease, esophagiti s presence not specified Diagnosis Active [facility] Allergies, Adverse Reactions, Alerts Allergy Name Allergy Type Status Severity Reaction(s) Onset Date Inactive Date Treating Clinician Comments Source NO KNOWN ALLERGIE S Drug Class Active [facility] Social History Social Habit Start Date Stop Date Quantity Comments Source Sexual orientation U [facility] Exposure to SARS-CoV-2 (event) 2022-07-25 00:00:00 2022-08-04 11:08:00 Not sure [facility] Sex Assigned At 1990 00:00:00 1990 00:00:00 [facility] Smoking Status Start Date Stop Date Source Tobacco smoking consumption unknown [facility] Medications Ordered Medication Name Filled Medication Name Start Date Stop Date Current Medication? Ordering Clinician Indication Dosage Frequency Signature (SIG) Comments Components Source benzonatate 200 mg capsule 05-10 00:00: 00 Yes [id number] 200mg Take 1 capsule by mouth 3 (three) times daily as needed for Cough for up to 20 doses. [facility] dexamethaso ne sod phos PF injection 10 mg 08-04 17:45: 00 08-04 17:55 :00 No 10mg 10 mg, Oral, ONCE, 1 dose, On Wed08/04/22 at 1245, 1 mL [facility] Prevacid Prevacid 05-12 00:00: 00 Yes Lizz Maxwell 1 capsule [facility] Promethazin e HCl Promethazin e HCl 05-12 00:00: 00 05-17 00:00 :00 No Lizz Maxwell 1 tablet as needed for N/V [facility] Vital Signs Vital Name Observation Time Observation Value Comments S alex Systolic blood pressure 2023-05-10 17:01:00 134 mm[Hg] [facility] Diastolic blood pressure 2023-05-10 17:01:00 81 mm[Hg] [facility] Heart rate 2023-05-10 17:01:00 68 /min [facility] Body temperature 2023-05-10 17:01:00 37.28 Joy [facility] Respiratory rate 2023-05-10 17:01:00 12 /min [facility] Body height 2023-05-10 17:01:00 180.3 cm [facility] Body weight 2023-05-10 17:01:00 99.791 kg [facility] BMI 2023-05-10 17:01:00 30.68 kg/m2 [facility] Oxygen saturation in Arterial blood by Pulse oximetry 2023-05-10 17:01:00 100 /min [facility] Systolic blood pressure 2022-08-04 16:09:00 147 mm[Hg] [facility] Diastolic blood pressure 2022-08-04 16:09:00 69 mm[Hg] [facility] Heart rate 2022-08-04 16:09:00 72 /min [facility] Body temperature 2022-08-04 16:09:00 37.22 Joy [facility] Respiratory rate 2022-08-04 16:09:00 16 /min [facility] Body height 2022-08-04 16:09:00 177.8 cm [facility] Body weight 2022-08-04 16:09:00 104.327 kg [facility] BMI 2022-08-04 16:09:00 33.00 kg/m2 [facility] Oxygen saturation in Arterial blood by Pulse oximetry 2022-08-04 16:09:00 100 /min [facility] Procedures Procedure Date / Time Performed Performing Clinicia n Source ASSIGNMENT OF BENEFITS 2023-05-10 18:07:56 Docto r Unassigned, [place] [facility] RAPID STREP SCREEN FOR GROUP A 2023-05-10 17:05:00 Christianne Ferreira [facility] RAPID INFLUENZA A/B 2023-05-10 17:05:00 Christianne Ferreira [facility] CONSENT/REFUSAL FOR DIAGNOSIS AND TREATMENT 2023-05-10 16:54:19 Doctor Unassigned, [place] [facility] RAPID STREP SCREEN FOR GROUP A 2022-08-04 16:42:00 Melina Bales [facility] COVID-19 (ID NOW RAPID TESTING) 2022-08-04 16:42:00 Melina Bales [facility] NOTICE OF PRIVACY PRACTICES 2022-08-04 16:02:15 Doctor Unassigned, [place] [facility] Encounters Start Date/Time End Date/Time Encounter Type Admission Type Attending [facility] Care Department Encounter ID Source 2021-05-14 11:03:08 Outpatient Lizz Maxwell [facility] [id number] [facility] 2023-05-10 11:06:00 2023-05-10 13:15:00 Emergency Christianne Ferreira [facility] [id number] [facility] 2023-05-10 11:06:00 2023-05-10 13:15:00 Emergency X Christianne [facility]REIRA [facility] ERT [id number] [facility] 2022-08-04 11:09:00 2022-08-04 13:07:00 Emergency Melina Bales [facility] [id number] [facility] 2022-08-04 11:09:00 2022-08-04 13:07:00 Emergency X MELINA BALES [facility] ERT [id number] [facility] 2019-05-12 15:00:00 2019-05-12 15:00:00 Outpatient [facility] Medicine [facility] [id number] [facility] Notes Date/Time Note Provider Source 2023-05-10 13:15:06 QeRAzmGJDHjSbO2Mle/Y 3wfcFP8B+H6rix [id number] -01-22T13:15:06 Pt discharged with diagnosis of viral URI with cough. Printed and verbal instructions reviewed with and given to patient. Prescriptions given x 1. Pt verbalized understanding of teaching, medications, and recommended follow-up. Denies questions or concerns at this time. Pt ambulatory at discharge. Appears in no apparent distress. No ataxia noted. [id number] department [id number]:15:32Emergency department [id number] for patient grok29425-5VdfkGAURTSNYILQDeptrxyo d C-CDA narrative [id number] R Goodrich RN[id number] [id number] T13:15:[id number]| [id number] Keisha Castro RN [facility] 2023-05-10 11:00:42 zzG4oSOElu7qAGElGtvt HnoNRVTwAapvsn qGIpsNjwQsvEwqGGn3SuvhLJ3OJRoX6126 -01-22T11:00:42 Carlo Rubio is a 33 year old male c/o sore throat for 4 days [id number] department Triage ohjaJP8505-00-42O36:00:58[facility] Triage [id number] for patient [id number] department NoteLNNARRATIVEFormatted C-CDA narrative [id number] M. Barton RN[id number] [id number] T11:00:[id number]| [id number] Rhonda Mcdonald RN [facility]"
--- NOTE | 2023-06-05 12:19 | ER ---
Nurse's Notes [facility] Name: Nba Rubio Jr Age: 33 yrs Sex: Male : 1990 Arrival Date: 06/05/2023 Time: 11:34 Bed IW1 Private MD: Diagnosis: Otalgia, left ear Presentation: 06/05 11:42 Chief complaint: Patient states: Sore throat for 2 weeks, left ear pain a few days rv later. Was checked and told he had no strep. Coronavirus screen: Vaccine status: Patient reports being unvaccinated. Ebola Screen: Patient denies travel to an Ebola-affected area in the 21 days before illness onset. Initial Sepsis Screen: Does the patient meet any 2 criteria? No. Patient's initial sepsis screen is negative. Does the patient have a suspected source of infection? No. Patient's initial sepsis screen is negative. Risk Assessment: Do you want to hurt yourself or someone else? Patient reports no desire to harm self or others. Onset of symptoms was May 2023. 11:42 Method Of Arrival: Ambulatory rv 11:42 Acuity: SHIVANI 4 rv Triage Assessment: 11:45 General: Appears in no apparent distress. comfortable, Behavior is calm, cooperative, rv appropriate for age. Historical: - Allergies: 11:45 No Known Allergies; rv - PMHx: 11:45 Anxiety; rv - Immunization history:: Client reports receiving the 2nd dose of the Covid vaccine. - Social history:: Smoking status: Reported history of juuling and/or vaping. Assessment: 12:25 Reassessment: Patient appears in no apparent distress at this time. Patient is alert, rv oriented x 3, equal unlabored respirations, skin warm/dry/pink. Vital Signs: 11:42 BP 123 / 81; Pulse 64; Resp 18; Temp 98.8(O); Pulse Ox 100% ; Weight 99.79 kg; Height 5 rv ft. 11 in. ; Pain 7/10; 11:42 Body Mass Index 30.68 (99.79 kg, 180.34 cm) rv 11:42 Pain Scale: Adult rv ED Course: 11:38 Patient arrived in ED. ts1 11:40 Fiona Davis FNP-C is [facility] kb 11:40 Eric Stokes MD is Attending Physician. kb 11:45 Triage completed. rv 11:45 Arm band placed on right wrist. rv 12:25 Patient did not have IV access during this emergency room visit. rv 12:25 No provider procedures requiring assistance completed. rv Administered Medications: No medications were administered Medication: 12:25 VIS not applicable for this client. rv Outcome: 12:18 Discharge ordered by . kb 12:25 Discharged to home ambulatory, rv 12:25 Condition: stable 12:25 Discharge instructions given to patient, Instructed on discharge instructions, follow rv up and referral plans. Demonstrated understanding of instructions, follow-up care, 12:25 Patient left the ED. rv Signatures: Fiona Davis, BOAT CARPENTER-C BRUCE-Dusty Perales RN RN rv Melina Howell PAS PAS ts1 Corrections: (The following items were deleted from the chart) 12:36 12:35 Patient left the ED. rv rv
--- NOTE | 2023-06-05 12:19 | EDPHYS ---
Physician Documentation [facility] Name: Nba Rubio Jr Age: 33 yrs Sex: Male : 1990 Arrival Date: 06/05/2023 Time: 11:34 Bed IW1 Private MD: BILLY Physician Eric Stokes HPI: 06/05 12:52 This 33 yrs old Male presents to ER via Ambulatory with complaints of Ear kb Pain, Sore Throat. 12:52 Patient is a 33-year-old male who presents for sore throat and left ear pain for 2 kb weeks. Denies cough, congestion. Reports subjective intermittent fever.. Historical: - Allergies: 11:45 No Known Allergies; rv - PMHx: 11:45 Anxiety; rv - Immunization history:: Client reports receiving the 2nd dose of the Covid vaccine. - Social history:: Smoking status: Reported history of juuling and/or vaping. ROS: 12:52 Respiratory: Negative for shortness of breath, cough, wheezing, and pleuritic chest kb pain, 12:52 Constitutional: Positive for fever, 12:52 ENT: Positive for ear pain, sore throat, 12:52 All other systems are negative, Exam: 12:52 Constitutional: This is a well developed, well nourished patient who is awake, alert, kb and in no acute distress. Head/Face: Normocephalic, atraumatic. Cardiovascular: Regular rate Respiratory: Respirations even and unlabored. No increased work of breathing. Talking in full sentences Skin: Warm, dry with normal turgor. Normal color. MS/ Extremity: Pulses equal, no cyanosis. Neurovascular intact. Full, normal range of motion. Neuro: Awake and alert, GCS 15, oriented to person, place, time, and situation. Moves all extremities. Normal gait. 12:52 ENT: External ear(s): are unremarkable, Ear canal(s): are normal, TM's: erythema, that is mild, on the left, Examination of the other ear shows no obvious abnormality, Posterior pharynx: is normal, airway is patent, no erythema, no exudate, no peritonsilar mass, no swelling, Vital Signs: 11:42 BP 123 / 81; Pulse 64; Resp 18; Temp 98.8(O); Pulse Ox 100% ; Weight 99.79 kg; Height 5 rv ft. 11 in. ; Pain 7/10; 11:42 Body Mass Index 30.68 (99.79 kg, 180.34 cm) rv 11:42 Pain Scale: Adult rv MDM: 11:40 Patient medically screened. kb 12:53 Differential diagnosis: otitis media, otitis externa, ruptured TM, foreign body, acute kb otalgia. Data reviewed: vital signs, nurses notes. Test considered but Not performed: Labs: Flu and COVID test considered but patient states he had those done last week and they were negative.. Counseling: I had a detailed discussion with the patient and/or guardian regarding the historical points, exam findings, and any diagnostic results supporting the discharge/admit diagnosis, lab results, the need for outpatient follow up, a family practitioner, to return to the emergency department if symptoms worsen or persist or if there are any questions or concerns that arise at home. 12:54 I considered the following discharge prescriptions or medication management in the emergency department I discussed and recommended Over The Counter medications, Antibiotics: At this time antibiotics are not recommended, Antivirals: At this time, antivirals are not recommended. 06/05 11:44 Order name: Strep kb 06/05 12:21 Order name: Throat Culture EDMS Administered Medications: No medications were administered Disposition Summary: 06/05/23 12:18 Discharge Ordered Notes: Location: Home Condition: Stable Diagnosis - Otalgia, left ear kb Followup: kb - With: Emergency Department - When: As needed - Reason: Worsening of condition Followup: kb - With: Private Physician - When: 2 - 3 days - Reason: Recheck today's complaints, Continuance of care, Re-evaluation by your physician Discharge Instructions: - Discharge Summary Sheet kb - Earache, Adult kb Forms: - Medication Reconciliation Form kb - Thank You Letter kb - Antibiotic Education kb - Prescription Opioid Use kb - Patient Portal Instructions kb - Leadership Thank You Letter kb Signatures: Dispatcher [employer] Fiona Bo FNP-C FNP-Ckb Vicente, Ronaldo, RN RN rv
[2023-06-05 12:53] VITALS: BP 123/81; TEMP 98.8; O2SAT 100
== END ==
LOC: ER 11:34
DX: H92.02 Otalgia, left ear (principal); R07.0 Pain in throat
CPT/HCPCS: 87070; 87081; 99282

== ENCOUNTER 2024-02-18 13:09 | Emergency (ER) | payer SELFPAY ==
--- NOTE | 2024-02-18 14:14 | RAD REPORT ---
EXAMINATION: CT HEAD WITHOUT CONTRAST CLINICAL INDICATION: Male, 34 years old.Dizziness;Headache TECHNIQUE: Axial CT images from the skull base to the vertex without intravenous contrast. Coronal an d sagittal reformatted images were created from the data set. One or more of the following dose reduction techniques were used: Automated exposure control, adjustment of the mA and/or kV according to patient size, and/or iterative reconstruction. Unless otherwise specified, incidental findings do not require dedicated imaging follow-up. [id number]. COMPARISON: No prior exam. FINDINGS: INTRACRANIAL: No acute intracranial hemorrhage. No hydrocephalus. No mass effect or midline shift. No significant white matter disease. VASCULATURE: No visualized abnormalities in the arteries or dural venous sinuses. SCALP/SKULL: No significant soft tissue or osseous abnormalities. SINUSES: The visualized paranasal sinuses and mastoid air cells are predominantly clear. IMPRESSION: No acute intracranial abnormality.
--- NOTE | 2024-02-18 14:39 | RAD REPORT ---
EXAMINATION: ONE VIEW CHEST XR CLINICAL INDICATION: Male, 34 years old.dizziness TECHNIQUE: 1 View, AP supine, X-ray of the chest was performed. [id number]. COMPARISON: 08/06/2022 FINDINGS: Lungs and pleura: Clear lungs. No effusion. Heart and mediastinum: Normal heart size. Unremarkable mediastinal contours. Osseous structures: No acute abnormality. Tubes/lines: None Other: None. IMPRESSION: No acute intrathoracic abnormality.
[2024-02-18 14:56] LABS: Absolute Eosinophils 0.1 K/uL (0-0.5); Absolute Lymphocytes (CBC) 2.6 K/uL (0.7-4.9); Absolute Monocytes 0.6 K/uL (0.1-1.3); Absolute Neutrophil 4.4 K/uL (1.8-8.0); Basophils % 0.4 % (0-1.3); Eosinophils % 1.8 % (0-4.4); Hematocrit 42.9 % (39.6-49.0); Hemoglobin 14.6 g/dL (13.6-17.9); Lymphocytes % 33.8 % (15.3-44.8); MCHC 33.9 g/dL (32.0-36.0); MCV 91.5 fL (80-100); MPV 8.7 fL (7.6-11.3); Monocytes % 7.7 % (3.3-12.3); Neutrophils % 56.3 % (41.7-73.7); Platelets 279 thou/uL (152-406); RBC Red Blood Cell Count 4.69 M/uL (4.33-5.43); Red Cell Distribution Width 13.1 % (12.1-15.2)
[2024-02-18 15:20] LABS: Albumin 3.7 g/dL (3.4-5.0); Albumin/Globulin Ratio 1.1 (1.1-1.8); Anion Gap 4.8 mEq/L (5.0-15.0); Bilirubin Direct 0.2 mg/dL (0-0.2); Bilirubin Indirect, Calculated 0.8 mg/dL (0.2-0.8); Globulin 3.3 g/dL (2.3-3.5); Magnesium 1.9 mg/dL (1.6-2.4); Potassium 3.8 mEq/L (3.5-5.1); Troponin High Sensitivity 18.3 pg/mL (<58.9)
--- NOTE | 2024-02-18 15:40 | ER ---
Nurse's Notes [facility] Name: Nba Rubio Jr Age: 34 yrs Sex: Male : 1990 Arrival Date: 02/18/2024 Time: 13:09 Bed 11 Private MD: Diagnosis: Headache;Syncope Near Presentation: 02/17 13:29 Chief complaint: Patient states: c/o headache that feels like pressure w/associated me1 lightheadedness. States when he has the head pressure he feels like he is going to pass out. Coronavirus screen: Vaccine status: Patient reports being unvaccinated. Ebola Screen: No symptoms or risks identified at this time. Initial Sepsis Screen: Does the patient meet any 2 criteria? No. Patient's initial sepsis screen is negative. Does the patient have a suspected source of infection? No. Patient's initial sepsis screen is negative. Risk Assessment: Do you want to hurt yourself or someone else? Patient reports no desire to harm self or others. Onset of symptoms was February 15, 2025. 13:29 Method Of Arrival: Ambulatory [facility] 13:29 Acuity: SHIVANI 4 me1 Triage Assessment: 13:32 Headache History: Denies prior headaches. General: Appears in no apparent distress. me1 well groomed, well developed, well nourished, Behavior is calm, cooperative, appropriate for age, Reports head "pressure" 3/10 w/associated dizziness and lightheadedness. Pain: Complains of pain in head Pain does not radiate. Pain currently is 3 out of 10 on a pain scale. Quality of pain is described as pressure, Pain began suddenly, Is continuous, Also complains of dizziness/lightheadedness. EENT: No signs and/or symptoms were reported regarding the EENT system. Neuro: Level of Consciousness is awake, alert, obeys commands, Oriented to person, place, time, situation, Appropriate for age. Cardiovascular: Patient's skin is warm and dry. Respiratory: Airway is patent Respiratory effort is even, unlabored, Respiratory pattern is regular, symmetrical. GI: No signs and/or symptoms were reported involving the gastrointestinal system. : No signs and/or symptoms were reported regarding the genitourinary system. Derm: Skin is intact, is healthy with good turgor, Skin is pink, warm \\T\\ dry. Musculoskeletal: No signs and/or symptoms reported regarding the musculoskeletal system. Historical: - Allergies: 13:32 No Known Drug Allergies; me1 - Home Meds: 13:32 None [Active]; me1 - PMHx: 13:32 Anxiety; me1 - PSHx: 13:32 None; me1 - Immunization history:: Adult Immunizations up to date. - Infectious Disease History:: Denies. - Social history:: Smoking status: Patient/guardian denies using tobacco, but has a distant history of tobacco abuse. Screenin:34 [facility] ED Fall Risk Assessment (Adult) History of falling in the last 3 months, me1 including since admission No falls in past 3 months (0 pts) Confusion or Disorientation No (0 pts) Intoxicated or Sedated No (0 pts) Impaired Gait No (0 pts) Mobility Assist Device Used No (0 pt) Altered Elimination No (0 pt) Score/Fall Risk Level 0 - 2 = Low Risk Maintained a safe environment, Provided non-skid footwear, Hourly rounding (assess needs \\T\\ fall precautionary measures) done. Abuse screen: Denies threats or abuse. Nutritional screening: No deficits noted. Tuberculosis screening: No symptoms or risk factors identified. Assessment: 13:34 General: See triage assessment.. Pain: Complains of pain in head. me1 Vital Signs: 13:29 BP 125 / 66; Pulse 60; Resp 17; Temp 98.6; Pulse Ox 100% ; Weight 104.33 kg; Height 5 me1 ft. 11 in. ; Pain 3/10; 14:00 BP 116 / 68; Pulse 57; Resp 16; Pulse Ox 98% ; me1 14:53 BP 104 / 62; Pulse 58; Resp 16; Pulse Ox 97% ; me1 15:54 BP 114 / 67; Pulse 59; Resp 16; Temp 98.4; Pulse Ox 100% ; me1 13:29 Body Mass Index 32.08 (104.33 kg, 180.34 cm) me1 13:29 Pain Scale: Adult oh1 ED Course: 13:13 Patient arrived in ED. mg5 13:15 Eric Buenrostro PA is PHCP. cp 13:15 Fernando Stover MD is Attending Physician. cp 13:29 Amina Michael RN is Primary Nurse. me1 13:32 Triage completed. me1 13:32 Arm band placed on Patient placed in an exam room. me1 13:34 Patient has correct armband on for positive identification. Bed in low position. Call me1 light in reach. Side rails up X2. Provided Education on: POC. Verbalized understanding. . Client placed on continuous cardiac and pulse oximetry monitoring. NIBP monitoring applied. Pulse ox on. NIBP on. 13:34 No provider procedures requiring assistance completed. me1 14:07 CT Head Brain wo Cont In Process Unspecified. EDMS 14:37 XRAY Chest (1 view) In Process Unspecified. EDMS 14:50 Basic Metabolic Panel Sent. me1 14:50 CBC with Diff Sent. me1 14:50 LFT's Sent. me1 14:50 Magnesium Sent. me1 14:50 Troponin HS Sent. me1 14:50 Initial lab(s) drawn, by me, sent to lab. Inserted saline lock: 20 gauge in right me1 antecubital area, using aseptic technique. 14:59 EKG done, by seismology technical officer. reviewed by Eric LIPSCOMB. nh2 15:54 IV discontinued, intact, bleeding controlled, No redness/swelling at site. Pressure me1 dressing applied. Administered Medications: No medications were administered Medication: 13:34 VIS not applicable for this client. me1 Outcome: 15:39 Discharge ordered by . becca 15:54 Discharged to home ambulatory, me1 15:54 Condition: stable 15:54 Discharge instructions given to patient, Instructed on discharge instructions, follow up and referral plans. Demonstrated understanding of instructions, follow-up care, 15:55 Patient left the ED. me1 Signatures: Dispatcher [employer] EDDC Eric Buenrostro PA PA cp Eddleman, Michelle, RN RN me1 Rashmi Antonio mg5 Murray Melvin, Jonnie nh2
--- NOTE | 2024-02-18 15:40 | EDPHYS ---
Physician Documentation [facility] Name: Nba Rubio Jr Age: 34 yrs Sex: Male : 1990 Arrival Date: 02/18/2024 Time: 13:09 Bed 11 Private MD: ED Physician Fernando Stover HPI: 02/17 14:00 This 34 yrs old Male presents to ER via Ambulatory with complaints of Headache.cp 14:00 Onset: The symptoms/episode began/occurred 2 day(s) ago. cp 14:00 Associated signs and symptoms: Pertinent positives: dizziness, lightheaded, near cp syncope. Severity of symptoms: At its worst the pain was moderate, earlier today, in the emergency department the pain has improved, moderately. 14:00 The patient complains of pain to the general. The patient describes the headache as a cp pressure, waxing and waning. Historical: - Allergies: 13:32 No Known Drug Allergies; me1 - Home Meds: 13:32 None [Active]; me1 - PMHx: 13:32 Anxiety; me1 - PSHx: 13:32 None; me1 - Immunization history:: Adult Immunizations up to date. - Infectious Disease History:: Denies. - Social history:: Smoking status: Patient/guardian denies using tobacco, but has a distant history of tobacco abuse. ROS: 14:05 Constitutional: Negative for body aches, chills, fever, poor PO intake, cp 14:05 Eyes: Negative for injury, pain, redness, and discharge, cp 14:05 ENT: Negative for drainage from ear(s), ear pain, sore throat, difficulty swallowing, difficulty handling secretions, 14:05 Neck: Negative for pain with movement, pain at rest, stiffness, 14:05 Cardiovascular: Negative for chest pain, edema, palpitations, 14:05 Respiratory: Negative for cough, shortness of breath, wheezing, 14:05 Abdomen/GI: Negative for abdominal pain, vomiting, diarrhea, constipation, 14:05 : Negative for urinary symptoms, 14:05 Neuro: Positive for dizziness, headache, near syncope, Negative for altered mental status, weakness, 14:05 All other systems are negative, Exam: 14:10 Constitutional: The patient appears in no acute distress, alert, awake, cp non-diaphoretic, non-toxic, well developed, well nourished, overweight 14:10 Head/Face: Normocephalic, atraumatic. cp 14:10 Eyes: Periorbital structures: appear normal, Conjunctiva: normal, no exudate, no injection, Sclera: no appreciated abnormality, Lids and lashes: appear normal, bilaterally, 14:10 ENT: External ear(s): are unremarkable, Nose: is normal, Mouth: Lips: moist, Oral mucosa: pink and intact, moist, Posterior pharynx: Airway: no evidence of obstruction, patent, 14:10 Chest/axilla: Inspection: normal, 14:10 Cardiovascular: Rate: normal, Rhythm: regular, Edema: is not appreciated, JVD: is not appreciated, 14:10 Respiratory: the patient does not display signs of respiratory distress, Respirations: normal, no use of accessory muscles, no retractions, labored breathing, is not present, Breath sounds: are clear throughout, no decreased breath sounds, no stridor, no wheezing, 14:10 Abdomen/GI: Inspection: abdomen appears normal, Bowel sounds: active, all quadrants, Palpation: abdomen is soft and non-tender, in all quadrants, 14:10 Back: pain, is absent, ROM is normal, 14:10 Skin: no rash present. 14:10 Neuro: Orientation: to person, place \T\ time. Mentation: is normal, Cerebellar function: is grossly normal, Motor: moves all fours, strength is normal, Sensation: is normal, 15:03 ECG was reviewed by the Attending Physician. cp Vital Signs: 13:29 BP 125 / 66; Pulse 60; Resp 17; Temp 98.6; Pulse Ox 100% ; Weight 104.33 kg; Height 5 me1 ft. 11 in. ; Pain 3/10; 14:00 BP 116 / 68; Pulse 57; Resp 16; Pulse Ox 98% ; me1 14:53 BP 104 / 62; Pulse 58; Resp 16; Pulse Ox 97% ; me1 15:54 BP 114 / 67; Pulse 59; Resp 16; Temp 98.4; Pulse Ox 100% ; me1 13:29 Body Mass Index 32.08 (104.33 kg, 180.34 cm) pr1 13:29 Pain Scale: Adult pr1 MDM: 13:25 Medical Screening Exam initiated cp 14:00 Differential diagnosis: intracerebral hemorrhage, meningoencephalitis, migraine, cp neoplasm, sinusitis, subarachnoid bleed, tension headache. 15:38 Data reviewed: vital signs, nurses notes, lab test result(s), EKG, radiologic studies, cp CT scan, plain films, and as a result, I will discharge patient. 02/17 14:18 Order name: Basic Metabolic Panel; Complete Time: 15:29 02/17 15:29 Interpretation: Normal except: CL 108; ANION GAP 4.8. 02/17 14:18 Order name: CBC with Diff; Complete Time: 15:29 02/17 14:18 Order name: LFT's; Complete Time: 15:29 02/17 14:18 Order name: Magnesium; Complete Time: 15:29 02/17 14:18 Order name: Troponin HS; Complete Time: 15:29 02/17 13:56 Order name: CT Head Brain wo Cont; Complete Time: 14:18 02/17 14:18 Interpretation: Report reviewed. 02/17 14:18 Order name: XRAY Chest (1 view); Complete Time: 14:43 02/17 14:43 Interpretation: Report review. 02/17 14:18 Order name: Cardiac monitoring; Complete Time: 15:43 02/17 14:18 Order name: EKG - Nurse/Tech; Complete Time: 14:58 02/17 14:18 Order name: IV Saline Lock; Complete Time: 14:50 02/17 14:18 Order name: Labs collected and sent; Complete Time: 14:43 02/17 14:18 Order name: O2 Per Protocol; Complete Time: 14:43 02/17 14:18 Order name: O2 Sat Monitoring; Complete Time: 14:43 EC:03 Rate is 51 beats/min. Rhythm is regular. AL interval is normal. QRS interval is cp prolonged at 102 msec. QT interval is normal. T waves are Inverted in leads aVL, aVR. Interpreted by me. Reviewed by me. Administered Medications: No medications were administered Disposition Summary: 02/18/24 15:39 Discharge Ordered Notes: Location: Home cp Problem: new cp Symptoms: have improved cp Condition: Stable cp Diagnosis - Headache cp - Syncope Near cp Followup: cp - With: Private Physician - When: 2 - 3 days - Reason: Recheck today's complaints Discharge Instructions: - Discharge Summary Sheet cp - General Headache Without Cause cp - Near-Syncope cp Forms: - Medication Reconciliation Form cp - Antibiotic Education cp - Prescription Opioid Use cp - Patient Portal Instructions cp - Leadership Thank You Letter cp - Work release form [email or web address] Addendum: 02/19/2024 17:52 I was immediately available for consultation during this patient's visit. I did not e c2 personally see the patient or discuss the patient with the NORMAN. . Signatures: Dispatcher [employer] EDMS Eric Buenrostro PA PA cp Eddleman, Michelle, RN RN me1 Fernando Stover MD MD ec2 Corrections: (The following items were deleted from the chart) 02/17 14:19 14:19 BASIC METABOLIC PANEL+C.LAB.BRZ ordered. EDMS EDMS 14:19 14:19 CBC+H.LAB.BRZ ordered. EDMS EDMS 14:19 14:19 HEPATIC FUNCTION+C.LAB.BRZ ordered. EDMS EDMS 14:19 14:19 MAGNESIUM+C.LAB.BRZ ordered. EDMS EDMS 14:19 14:19 Troponin High Sensitivity+C.LAB.BRZ ordered. EDMS EDMS 14:19 14:19 Chest Single View+RAD.RAD.BRZ ordered. EDMS EDMS
[2024-02-18 16:22] VITALS: BP 114/67; TEMP 98.4; O2SAT 100
--- NOTE | 2024-02-21 12:19 | EKG ---
Test Date: 2024-02-18 Test Time: 14:56:32 Interlocking Machine Operator: EUGENE MEASUREMENT RESULTS: Intervals: Rate: 51 IA: 150 QRSD: 102 QT: 428 QTc: 394 [place]: P: 68 IA: 150 QRS: 71 T: 59 INTERPRETIVE STATEMENTS: Sinus bradycardia Otherwise normal ECG Compared to ECG 10/07/2014 06:12:36 Sinus rhythm no longer present Ventricular premature complex(es) no longer present Electronically Signed On 02-21-24 12:16:13 STILL PUMP OPERATOR by Jordi Seo
== END 2024-02-18 15:55 | disposition home or self-care (01) ==
LOC: ER 13:09
DX: R51.9 Headache, unspecified (principal); R55 Syncope and collapse
CPT/HCPCS: 36415; 70450; 71045; 80048; 80076; 83735; 84484; 85025; 93005; 99284